=== PATIENT | male | born 1965 | race Caucasian/White ===

== ENCOUNTER 2019-07-13 09:25 | Day surgery (SDC) | payer MEDICAID ==
[2019-07-11 15:00] VITALS: BP 136/88
[2019-07-11 15:10] LABS: BASOPHILS % (AUTO) 0.7 % (0.0-5.0); EOSINOPHILS % (AUTO) 2.8 % (0.0-8.0); MEAN CORPUSCULAR HEMOGLOBIN 29.9 pg (27.0-33.0); MEAN CORPUSCULAR HGB CONC 33.5 g/dL (32.0-36.0); MEAN CORPUSCULAR VOLUME 89.2 fL (79-99); NEUTROPHILS % (AUTO) 67.5 % (40.0-77.0); NUCLEATED RED BLOOD CELLS 0.1 % (0.0-0.19); PLATELET COUNT (AUTO) 233 K/uL (130-400); RED BLOOD CELL COUNT(AUTO) 5.49 MIL/uL (4.50-6.20); RED CELL DISTRIBUTION WIDTH 13.8 % (11.0-15.5); WHITE BLOOD COUNT (AUTO) 6.8 K/uL (4.8-10.8)
[2019-07-11 15:11] LABS: APPEARANCE,URINE Clear (CLEAR); BILIRUBIN,URINE Negative (NEGATIVE); COLOR,URINE Yellow (YELLOW); GLUCOSE, URINE (UA) >=1000 mg/dL (NEGATIVE); KETONES,URINE Negative (NEGATIVE); LEUKOCYTE ESTERASE ,URINE Negative (NEGATIVE); NITRATE,URINE Negative (NEGATIVE); OCCULT BLOOD,URINE Moderate (NEGATIVE); PH,URINE 5.5 (5.0-8.0); PROTEIN,URINE >=1000 mg/dL (NEGATIVE)
[2019-07-11 15:20] LABS: CREATININE 1.8 mg/dL (0.5-1.5); POTASSIUM 4.4 mmol/L (3.5-5.1)
[2019-07-11 15:22] LABS: PARTIAL THROMBOPLASTIN TIME 29.7 SEC (26.3-35.5); PROTHROMBIN TIME 10.5 SEC (9.6-11.6)
[2019-07-11 15:37] LABS: AMORPHOUS SEDIMENT,UR Few /LPF (None Seen); BACTERIA,URINE Few /HPF (None Seen); MUCUS,URINE Few LPF (None Seen)
--- NOTE | 2019-07-12 17:58 | NUR ---
NURSING: CALLED OFFICE: REPORTED ABNORMAL LABS TO [facility], NO NEW ORDERS, OK TO PROCEED PER DR. LEDBETTER.
[~2019-07-13] VITALS: Ht 185.4 cm; Wt 180.5 kg
[2019-07-13] VITALS (18 sets, daily range): BP systolic 135–176; BP diastolic 77–107
[2019-07-13] MEDS: CEFAZOLIN SODIUM 1 GM VIAL IVP ONE ×2 (08:00→10:45)
[~2019-07-13 09:25] MED LIST: ASPI-1181 PO; INSU100C14 SQ; INSU100V12 SQ
[2019-07-13] MEDS ORDERED: ROCURONIUM 10MG/1ML SYR 10 MG/ML ML ONE (10:28)
[2019-07-13] MEDS ORDERED: LIDOCAINE PF 2% 5ML ABBOJECT ONE (10:28)
[2019-07-13] MEDS ORDERED: MIDAZOLAM HCL 1 MG/ML 2ML VIAL ONE (10:28)
[2019-07-13] MEDS ORDERED: FENTANYL CITRATE PF 50 MCG/1 ML 5ML AMP IV ONE (10:28)
[2019-07-13] MEDS ORDERED: PROPOFOL 10 MG/ML 20ML VIAL IV ONE (10:28)
[2019-07-13] MEDS ORDERED: CEFAZOLIN SODIUM 1 GM VIAL ONE (10:32)
[2019-07-13] MEDS ORDERED: SODIUM CHLORIDE 0.9% 1000ML 1,000 ML IV ONE (10:32)
[2019-07-13] MEDS ORDERED: FLUT1DIS4 IH (11:04)
[2019-07-13] MEDS ORDERED: GEMF600T5 PO (11:04)
[2019-07-13] MEDS ORDERED: FOLI0.8T41 PO (11:04)
[2019-07-13] MEDS ORDERED: PREG50 PO (11:04)
[2019-07-13] MEDS ORDERED: protonix PO (11:04)
[2019-07-13] MEDS ORDERED: ALBU8.5H8 IH (11:04)
[2019-07-13] MEDS ORDERED: hydrocodon (11:04)
[2019-07-13] MEDS ORDERED: BACITRACIN 28.4 GM OINT TP ONE (11:29)
[2019-07-13] MEDS ORDERED: DEXAMETHASONE SOD PHOSPHATE 10MG/ML 1ML VIAL ONE (11:33)
[2019-07-13] MEDS ORDERED: GLYCOPYRROLATE 1 MG/5 ML SYRINGE ONE (11:33)
[2019-07-13] MEDS ORDERED: NEOSTIGMINE 5MG/5ML SYR IV ONE (11:33)
[2019-07-13] MEDS ORDERED: IPRATROPIUM/ALBUTEROL SULFATE 3 ML SOLUTION IH ONE (11:57)
--- NOTE | 2019-07-13 13:00 | NUR ---
RECEIVE PT RECEIVED FROM PACU VIA STRETCHER AWAKE ALERT ORIENTED X3. SCROTAL SUPPORT ON, SCROTAL DRESSING DRY AND INTACT, NO OOZING NOTED. PT STATES HIS BACK HURTS, HAS CHRONIC BACK PAIN. PT REPOSITIONED, VERBALIZED RELIEF AFTER REPOSITIONING. PT NOT IN ANY OTHER DISTRESS, NO OTHER COMPLAINTS MADE. PER PT/PACU NURSE, PT VOIDED IN PACU. CALLED FOR TO COME. CALL MESSINA WITHIN REACH. WILL CONTINUE TO MONITOR PT.
--- NOTE | 2019-07-13 13:45 | NUR ---
CLARIFICATION DR. LEDBETTER DID NOT WRITE NEW PRESCRIPTION. PAGED TWICE TO CONFIRM. WAITING FOR CALL BACK.
--- NOTE | 2019-07-13 14:00 | NUR ---
CRITERIA FOR DISCHARGE PT MEETS CRITERIA FOR DISCHARGE BUT IS WAITING FOR TRANSPORTATION. WITH PT AND HAD CALLED MEDICAID TRANSPORT. PT STABLE. STATES HE HAS LITTLE STINGING SENSATION TO INCISION SITE, OTHERWISE HE IS DOING GOOD. NO OTHER COMPLAINTS MADE. NOT ANY APPARENT DISTRESS. SCROTAL SUPPORT ON, SCROTAL DRESSING REMAINS DRY AND INTACT, NO OOZING NOTED. TOLERATED ORAL FLUIDS WELL. DISCHARGE INSTRUCTIONS GIVEN TO AND PT, VERBALIZED UNDERSTANDING.
--- NOTE | 2019-07-13 14:50 | NUR ---
DISCHARGE TRANSPORTATION HERE. PT DISCHARGED VIA WHEELCHAIR WITH . PT STABLE. NO COMPLAINTS MADE.
== END 2019-07-13 14:50 | disposition home or self-care (01) ==
LOC: DAH 09:25
PROVIDERS: ATTEND Urology
DX: N43.2 Other hydrocele (principal); E11.22 Type 2 diabetes mellitus with diabetic chronic kidney disease; N18.9 Chronic kidney disease, unspecified; E78.5 Hyperlipidemia, unspecified; K21.9 Gastro-esophageal reflux disease without esophagitis; F17.210 Nicotine dependence, cigarettes, uncomplicated; J45.909 Unspecified asthma, uncomplicated; E66.01 Morbid (severe) obesity due to excess calories; Z68.42 Body mass index [BMI] 45.0-49.9, adult; Z88.1 Allergy status to other antibiotic agents; Z88.2 Allergy status to sulfonamides; Z79.84 Long term (current) use of oral hypoglycemic drugs; Z90.5 Acquired absence of kidney; Z79.4 Long term (current) use of insulin
CPT/HCPCS: 36415; 55040; 80048; 81001; 82948 ×2; 85025; 85610; 85730; 87088; 93005; 94640; A4215; A4221; A4222; A4223; A4600; A4606; A4663; A4930 ×2; A6260; J0690; J1100; J2001; J2250; J2704; J2710; J3010; J3490; J7030 ×2

== ENCOUNTER 2019-07-28 18:58 | Inpatient (IN) | payer MEDICAID ==
[~2019-07-28] VITALS: Ht 185.4 cm; Wt 209.1 kg
[~2019-07-28 18:58] MED LIST changes: +ALBU8.5H8 IH; +FLUT1DIS4 IH; +FOLI0.8T41 PO; +GEMF600T5 PO; +PREG50 PO; +hydrocodon; +protonix PO
[2019-07-28] MEDS ORDERED: ASPIRIN 325 MG TABLET ONE (19:18)
[2019-07-28 19:41] LABS: BASOPHILS % (AUTO) 1.3 % (0.0-5.0); LYMPHOCYTES % (AUTO) 14.8 % (21.0-51.0); MEAN CORPUSCULAR HEMOGLOBIN 29.7 pg (27.0-33.0); MEAN CORPUSCULAR HGB CONC 33.2 g/dL (32.0-36.0); MEAN CORPUSCULAR VOLUME 89.2 fL (79-99); MONOCYTES % (AUTO) 8.3 % (3.0-13.0); NEUTROPHILS % (AUTO) 73.6 % (40.0-77.0); NUCLEATED RED BLOOD CELLS 0.4 % (0.0-0.19); PLATELET COUNT (AUTO) 273 K/uL (130-400); RED BLOOD CELL COUNT(AUTO) 4.93 MIL/uL (4.50-6.20); WHITE BLOOD COUNT (AUTO) 8.8 K/uL (4.8-10.8)
[2019-07-28 19:52] LABS: CREATININE 1.9 mg/dL (0.5-1.5); POTASSIUM 4.9 mmol/L (3.5-5.1)
[2019-07-28 19:56] LABS: ALBUMIN 2.5 g/dL (3.5-5.0); BILIRUBIN,TOTAL 0.3 mg/dL (0.2-1.0); TOTAL PROTEIN, SERUM 7.3 g/dL (6.0-8.3)
[2019-07-28 20:05] LABS: ABG BASE EXCESS 2.2 mmol/L (-2.0-3.0); ABG HCO3 29.7 mmol/L (21.0-28.0); ABG OXYGEN SATURATION 90.9 % (95.0-99.0); ABG PCO2 58 mmHg (35-48)
[2019-07-28 20:07] LABS: PARTIAL THROMBOPLASTIN TIME 31.1 SEC (26.3-35.5); PROTHROMBIN TIME 10.5 SEC (9.6-11.6)
[2019-07-28] MEDS ORDERED: IPRATROPIUM/ALBUTEROL SULFATE 3 ML SOLUTION IH ONE (20:23)
[2019-07-28 20:34] LABS: B-TYPE NATRIURETIC PEPTIDE 200 pg/mL (0-100)
[2019-07-28] MEDS ORDERED: MORPHINE SULFATE 4 MG/1ML SYG ONE (20:54)
[2019-07-28] MEDS ORDERED: ONDANSETRON HCL 4 MG/2 ML VIAL ONE (20:54)
[2019-07-28] MEDS ORDERED: ZOSYN 3.375GM+NS 50ML 50 ML IV ONE (23:36)
[2019-07-29] VITALS (7 sets, daily range): BP systolic 122–142; BP diastolic 76–91
[2019-07-29] MEDS ORDERED: ONDANSETRON HCL 4 MG/2 ML VIAL IV PRN (01:45)
[2019-07-29] MEDS ORDERED: HYDRALAZINE HCL 20 MG/ML VIAL IV PRN (01:45)
[2019-07-29] MEDS ORDERED: MORPHINE SULFATE 4 MG/1ML SYG IV PRN (01:45)
[2019-07-29] MEDS ORDERED: IPRATROPIUM/ALBUTEROL SULFATE 3 ML SOLUTION IH ONE (02:01)
[2019-07-29] MEDS: METHYLPREDNISOLONE SOD SUCC 125MG/2ML VIAL IV SCH ×3 (04:56→17:00)
[2019-07-29] MEDS: MORPHINE SULFATE 2 MG/ML 1ML SYG IV PRN ×3 (04:57→21:05)
[2019-07-29 05:11] LABS: BASOPHILS % (AUTO) 0.6 % (0.0-5.0); EOSINOPHILS % (AUTO) 2.6 % (0.0-8.0); HEMATOCRIT 44.1 % (42-54); LYMPHOCYTES % (AUTO) 17.7 % (21.0-51.0); MEAN CORPUSCULAR HEMOGLOBIN 29.7 pg (27.0-33.0); MEAN CORPUSCULAR HGB CONC 32.9 g/dL (32.0-36.0); MEAN CORPUSCULAR VOLUME 90.4 fL (79-99); MONOCYTES % (AUTO) 8.4 % (3.0-13.0); NEUTROPHILS % (AUTO) 70.7 % (40.0-77.0); NUCLEATED RED BLOOD CELLS 0.3 % (0.0-0.19); PLATELET COUNT (AUTO) 250 K/uL (130-400); RED BLOOD CELL COUNT(AUTO) 4.88 MIL/uL (4.50-6.20); RED CELL DISTRIBUTION WIDTH 14.5 % (11.0-15.5); WHITE BLOOD COUNT (AUTO) 8.2 K/uL (4.8-10.8)
[2019-07-29 05:32] LABS: ALBUMIN 2.4 g/dL (3.5-5.0); BILIRUBIN,TOTAL 0.4 mg/dL (0.2-1.0); CREATININE 2.1 mg/dL (0.5-1.5); POTASSIUM 4.7 mmol/L (3.5-5.1); TOTAL PROTEIN, SERUM 7.2 g/dL (6.0-8.3)
[2019-07-29] MEDS: IPRATROPIUM/ALBUTEROL SULFATE 3 ML SOLUTION IH SCH ×4 (07:23→23:25)
[2019-07-29] MEDS ORDERED: INSULIN HUMULIN R 100 UNIT/ML 3ML SQ SCH (07:30)
[2019-07-29] MEDS ORDERED: POTASSIUM CHLORIDE 20 MEQ ERTAB PO PRN (09:00)
[2019-07-29] MEDS ORDERED: FUROSEMIDE 10 MG/ML 4ML VIAL IV SCH (09:00)
[2019-07-29] MEDS ORDERED: POTASSIUM CHLORIDE 10% ELIXIR 20 MEQ/15 ML UDCUP PO PRN (09:00)
[2019-07-29] MEDS ORDERED: LIDOCAINE HCL-MPF 1% 2ML VIAL IV PRN (09:00)
[2019-07-29] MEDS ORDERED: POTASSIUM CHLORIDE 20MEQ/100ML 100 ML IV PRN (09:00)
[2019-07-29] MEDS ORDERED: FAMOTIDINE/PF 20 MG/2 ML VIAL IV SCH (09:00)
[2019-07-29] MEDS ORDERED: BUMETANIDE 0.25 MG/ML 10 ML VIAL IV SCH (09:30)
[2019-07-29] MEDS: METOPROLOL TARTRATE 25 MG TAB PO SCH ×2 (10:09→21:04)
[2019-07-29] MEDS: ENOXAPARIN SODIUM 30 MG/0.3 ML SQ SCH (10:09)
[2019-07-29] MEDS: FAMOTIDINE/PF 20 MG/2 ML VIAL IV SCH ×2 (10:09→21:04)
--- NOTE | 2019-07-29 10:25 | NUR ---
INITIATED BUMEX DRIP AT 1MG/HR A ORDERED BY MD. INFORMED PATIENT OF THE INDICATION AND SIDE EFFECTS OF THE MEDICATION. PATIENT VERBALIZED UNDERSTANDING THAT HIS INTAKE AND OUTPUT WILL BE STRICTLY MONITORED. URINAL WITHIN REACH.
[2019-07-29 10:26] LABS: ABG BASE EXCESS -4.5 mmol/L (-2.0-3.0); ABG HCO3 24.5 mmol/L (21.0-28.0); ABG OXYGEN SATURATION 89.5 % (95.0-99.0); ABG PCO2 62 mmHg (35-48)
[2019-07-29] MEDS: BUMETANIDE 0.25 MG/ML 10 ML 40 ML IV SCH (10:29)
[2019-07-29] MEDS: INSULIN LISPRO 100 UNIT/ML 3ML SQ SCH ×5 (11:45→21:25)
--- NOTE | 2019-07-29 19:00 | NUR ---
PATIENT IS ON CONTINUOUS BIPAP AND REMAINED NPO THROUGHOUT THE DAY. HIGH FLOW NASAL CANNULA WAS TRIED IN THE MORNING AT 22L PER MINUTE. ABG RESULTS REPORTED TO Lisa DE SANTIAGO AND SHE ORDERED TO PLACE BIPAP BACK.
--- NOTE | 2019-07-29 19:03 | NUR ---
cm note pt currently in PCU, on bipap machine, attempted to visit with pt, but pt on bipap, and unable to answer, will followup when pt able, or family at bedside.
[2019-07-29] MEDS: CEFTRIAXONE SODIUM 2 GM VIAL IVP SCH (21:03)
[2019-07-29] MEDS: INSULIN GLARGINE 100 UNITS/ML 10 ML VIAL SQ SCH (21:25)
[2019-07-29] MEDS ORDERED: BUMETANIDE 0.25 MG/ML 4 ML VIAL ONE (23:17)
[2019-07-30] MEDS ORDERED: BUMETANIDE 0.25 MG/ML 4 ML VIAL ONE ×2 (01:58→02:02)
[2019-07-30] MEDS: METHYLPREDNISOLONE SOD SUCC 125MG/2ML VIAL IV SCH ×2 (02:06→10:09)
[2019-07-30 03:57] VITALS: BP 142/84
[2019-07-30 04:06] LABS: BASOPHILS % (AUTO) 0.3 % (0.0-5.0); EOSINOPHILS % (AUTO) 0.2 % (0.0-8.0); HEMATOCRIT 45.5 % (42-54); LYMPHOCYTES % (AUTO) 9.2 % (21.0-51.0); MEAN CORPUSCULAR HEMOGLOBIN 29.8 pg (27.0-33.0); MEAN CORPUSCULAR HGB CONC 33.2 g/dL (32.0-36.0); MEAN CORPUSCULAR VOLUME 89.8 fL (79-99); MONOCYTES % (AUTO) 6.3 % (3.0-13.0); NUCLEATED RED BLOOD CELLS 0.1 % (0.0-0.19); PLATELET COUNT (AUTO) 307 K/uL (130-400); RED BLOOD CELL COUNT(AUTO) 5.07 MIL/uL (4.50-6.20); RED CELL DISTRIBUTION WIDTH 14.2 % (11.0-15.5); WHITE BLOOD COUNT (AUTO) 9.4 K/uL (4.8-10.8)
[2019-07-30 04:20] LABS: CREATININE 2.2 mg/dL (0.5-1.5); POTASSIUM 5.6 mmol/L (3.5-5.1)
[2019-07-30] MEDS: INSULIN LISPRO 100 UNIT/ML 3ML SQ SCH ×6 (06:27→21:58)
[2019-07-30] MEDS: IPRATROPIUM/ALBUTEROL SULFATE 3 ML SOLUTION IH SCH ×4 (06:39→23:23)
[2019-07-30 07:00] VITALS: BP 130/78
--- NOTE | 2019-07-30 08:02 | NUR ---
INFORMED SAMANTHA BOWENS ABOUT THE NEW CONSULT.
[2019-07-30 08:47] LABS: ABG BASE EXCESS 4.1 mmol/L (-2.0-3.0); ABG HCO3 32.6 mmol/L (21.0-28.0); ABG OXYGEN SATURATION 91.3 % (95.0-99.0); ABG PCO2 66 mmHg (35-48)
[2019-07-30] MEDS: BUMETANIDE 0.25 MG/ML 10 ML 40 ML IV SCH ×2 (09:29→19:36)
[2019-07-30] MEDS: FAMOTIDINE/PF 20 MG/2 ML VIAL IV SCH ×2 (10:09→21:30)
[2019-07-30] MEDS: ENOXAPARIN SODIUM 30 MG/0.3 ML SQ SCH (10:09)
[2019-07-30] MEDS: METOPROLOL TARTRATE 25 MG TAB PO SCH ×2 (10:09→21:29)
[2019-07-30] MEDS: MORPHINE SULFATE 2 MG/ML 1ML SYG IV PRN ×2 (10:38→21:53)
[2019-07-30 11:00] VITALS: BP 126/63
--- NOTE | 2019-07-30 11:28 | NUR ---
DC PLAN PATIENT STILL HAVING SOB ON CONTINUOUS BIPAP NOT ABLE TO ANSWER QUESTIONS. NO FAMILY AT BEDSIDE MANUEL WILL CONTINUE TO FOLLOW. Addendum: 07/30/19 at 1128 by ANDREIA ORR RN CM Amended: Links added.
[2019-07-30] MEDS ORDERED: SODIUM CHLORIDE 3% FOR INHALATION 4 ML/AMP VIAL.NEB IH ONE (14:05)
[2019-07-30 15:00] VITALS: BP 144/80
[2019-07-30] MEDS ORDERED: ENOXAPARIN SODIUM 30 MG/0.3 ML SQ SCH (16:30)
[2019-07-30] MEDS ORDERED: INSULIN LISPRO 100 UNIT/ML 3ML SQ SCH (17:00)
[2019-07-30 20:18] VITALS: BP 136/74
[2019-07-30] MEDS ORDERED: METHYLPREDNISOLONE SOD SUCC 125MG/2ML VIAL IV SCH (21:00)
[2019-07-30] MEDS: CEFTRIAXONE SODIUM 2 GM VIAL IVP SCH (21:31)
[2019-07-30] MEDS: ENOXAPARIN SODIUM 100 MG/1 ML SQ SCH (21:35)
[2019-07-30] MEDS: INSULIN GLARGINE 100 UNITS/ML 10 ML VIAL SQ SCH (21:58)
[2019-07-30 23:54] VITALS: BP 154/93
[2019-07-31 03:34] LABS: BASOPHILS % (AUTO) 0.4 % (0.0-5.0); EOSINOPHILS % (AUTO) 0.1 % (0.0-8.0); HEMATOCRIT 48.1 % (42-54); LYMPHOCYTES % (AUTO) 5.6 % (21.0-51.0); MEAN CORPUSCULAR HEMOGLOBIN 29.1 pg (27.0-33.0); MEAN CORPUSCULAR HGB CONC 32.3 g/dL (32.0-36.0); MEAN CORPUSCULAR VOLUME 90.3 fL (79-99); NEUTROPHILS % (AUTO) 87.9 % (40.0-77.0); NUCLEATED RED BLOOD CELLS 0.1 % (0.0-0.19); PLATELET COUNT (AUTO) 309 K/uL (130-400); RED BLOOD CELL COUNT(AUTO) 5.33 MIL/uL (4.50-6.20); RED CELL DISTRIBUTION WIDTH 14.1 % (11.0-15.5); WHITE BLOOD COUNT (AUTO) 10.4 K/uL (4.8-10.8)
[2019-07-31 03:51] LABS: HEMOGLOBIN A1C 10.2 % (4.0-6.0)
[2019-07-31 04:12] LABS: CREATININE 2.3 mg/dL (0.5-1.5)
[2019-07-31 04:21] VITALS: BP 142/87
--- NOTE | 2019-07-31 04:40 | NUR ---
BLOOD SUGAR REPORTED BLOOD SUGAR OF 475 THIS MORNING, TO JONNATHAN HAWKINS FROM HOSPITALIST, STATED TO GIVE 16 U LISPRO AND RECHECK IN 1 HR, WILL CONTINUE TO MONITOR PATIENT
[2019-07-31] MEDS: INSULIN LISPRO 100 UNIT/ML 3ML SQ SCH ×8 (04:50→20:52)
[2019-07-31] MEDS: BUMETANIDE 0.25 MG/ML 10 ML 40 ML IV SCH (06:10)
[2019-07-31] MEDS: IPRATROPIUM/ALBUTEROL SULFATE 3 ML SOLUTION IH SCH ×4 (06:50→23:41)
--- NOTE | 2019-07-31 07:30 | NUR ---
ENCOUNTERED PATIENT RESTING ON BED WITH NO C/O SOB. BIPAP IS ON. HE VOICED THAT HE FEELS BETTER TODAY. CALL LIGHT WITHIN REACH. INSTRUCTED TO CALL FOR ASSISTANCE.
[2019-07-31] MEDS: METOPROLOL TARTRATE 25 MG TAB PO SCH ×2 (07:46→20:27)
[2019-07-31] MEDS: FAMOTIDINE/PF 20 MG/2 ML VIAL IV SCH ×2 (07:46→20:27)
[2019-07-31] MEDS: ENOXAPARIN SODIUM 100 MG/1 ML SQ SCH ×2 (07:47→20:26)
[2019-07-31 07:57] VITALS: BP 149/90
[2019-07-31 10:33] LABS: ABG BASE EXCESS 10.7 mmol/L (-2.0-3.0); ABG OXYGEN SATURATION 94.1 % (95.0-99.0); ABG PCO2 68 mmHg (35-48)
[2019-07-31 12:03] VITALS: BP 126/78
--- NOTE | 2019-07-31 12:47 | NUR ---
MORRO PLAN PATIENT STILL SOB DIETARY IN ROOM. CM WILL CONTINUE TO FOLLOW. NEW CONSULT NEPHROLOGY ACUTE ON CHRONIC RENAL FAILURE. Addendum: 07/31/19 at 1248 by ANDREIA ORR RN CM Amended: Links added.
[2019-07-31 15:33] VITALS: BP 133/79
--- NOTE | 2019-07-31 15:50 | NUR ---
RD Notification Pt admitted for SOBm Chest Pain. Pt with morbid obesity (BMI 59.7). RD provided motivational interviewing to follow up with additional Weight Loss Lifestyle Modification Recommendations. Patient states difficulty with wt loss d/t previous foot surgery limiting exercise and poor economic resources, and deals daily with stress and anxiety. RD to follow up with additional diet education. Recommend PT evaluation for lifestyle recommendations. Pt LBM 07/28/19; Recommend stool softener/laxative as medically feasible. Pt monitored labs: Na 134, Cl 93, CO2 36, BUN 55, Cr 2.3, GFR 32, Glu 391, A1C 10.2, Alb 2.4. RD to continue to monitor. Please notify as nutritional concerns arise. Thank you. Addendum: 07/31/19 at [address] Amended: Links added.
--- NOTE | 2019-07-31 18:40 | NUR ---
SBAR REPORT HANDED TO TREVIN COBB. PATIENT TOLERATED BIPAP USE INTERMITTENTLY WITH HIGH FLOW NASAL CANNULA AT 20L 70% FIO2 WITH MEALS. BLOOD SUGAR HAD BEEN COVERED WITH SCHEDULED AND SLIDING SCALE HUMALOG.
[2019-07-31 19:31] VITALS: BP 113/72
[2019-07-31] MEDS: INSULIN GLARGINE 100 UNITS/ML 10 ML VIAL SQ SCH (20:25)
[2019-07-31] MEDS: CEFTRIAXONE SODIUM 2 GM VIAL IVP SCH (20:26)
[2019-07-31 23:23] VITALS: BP 112/71
[2019-08-01] MEDS: MORPHINE SULFATE 2 MG/ML 1ML SYG IV PRN ×3 (03:39→21:04)
[2019-08-01 03:44] VITALS: BP 125/70
[2019-08-01 05:01] LABS: HEMATOCRIT 49.1 % (42-54); MEAN CORPUSCULAR HEMOGLOBIN 29.1 pg (27.0-33.0); MEAN CORPUSCULAR HGB CONC 32.8 g/dL (32.0-36.0); MEAN CORPUSCULAR VOLUME 88.9 fL (79-99); NUCLEATED RED BLOOD CELLS 0.1 % (0.0-0.19); PLATELET COUNT (AUTO) 307 K/uL (130-400); RED BLOOD CELL COUNT(AUTO) 5.52 MIL/uL (4.50-6.20); WHITE BLOOD COUNT (AUTO) 7.4 K/uL (4.8-10.8)
[2019-08-01 05:18] LABS: CREATININE 2.6 mg/dL (0.5-1.5); MAGNESIUM 1.9 mg/dL (1.80-2.40); PHOSPHORUS 6.1 mg/dL (2.5-4.9); POTASSIUM 4.1 mmol/L (3.5-5.1); THYROID STIMULATING HORMONE 4.3 uIU/mL (0.36-3.74); URIC ACID 14.7 mg/dL (2.6-7.2)
[2019-08-01 05:19] LABS: BAND NEUTROPHILS % (MANUAL) 4 % (0-2); LYMPHOCYTES % (MANUAL) 20 % (22-44); MAN.DIFF COMMENT-IMPRESSION MANUAL DIFFERENTIAL; MONOCYTES % (MANUAL) 4 % (2-9); SEGMENTED NEUTROPHILS % 72 % (40-70)
[2019-08-01 05:20] LABS: PLATELET MORPHOLOGY COMMENT ADEQUATE
[2019-08-01] MEDS: INSULIN LISPRO 100 UNIT/ML 3ML SQ SCH ×7 (06:36→20:41)
[2019-08-01] MEDS: IPRATROPIUM/ALBUTEROL SULFATE 3 ML SOLUTION IH SCH ×4 (07:00→23:05)
[2019-08-01 07:34] VITALS: BP 110/64
[2019-08-01] MEDS: FAMOTIDINE/PF 20 MG/2 ML VIAL IV SCH ×2 (09:42→21:03)
[2019-08-01] MEDS: METOPROLOL TARTRATE 25 MG TAB PO SCH ×2 (09:42→21:03)
[2019-08-01] MEDS: FOLIC ACID/VITAMIN B COMP W-C 1 MG CAP/TAB PO SCH (09:42)
[2019-08-01] MEDS: ENOXAPARIN SODIUM 100 MG/1 ML SQ SCH ×2 (09:43→21:03)
[2019-08-01 11:33] VITALS: BP 107/69
--- NOTE | 2019-08-01 14:49 | NUR ---
DIET EDUCATION CASSY discussed Wt loss and management with Pt for Morbid Obesity. CASSY discussed Weight loss tips with emphasis on diet and exercise. CASSY also discussed Mediterranean diet with Pt. CASSY reviewed reference materials and handouts with Pt. Pt with questions. RD answered questions. Pt verbalized understanding. Pt also mentions being seen by Physical Therapist. CASSY encouraged Pt to notify as questions or concerns arise. Addendum: 08/01/19 at [address] Amended: Links added.
[2019-08-01 15:25] VITALS: BP 131/79
[2019-08-01] MEDS: CALCIUM ACETATE 667 MG CAPSULE PO SCH (16:46)
--- NOTE | 2019-08-01 17:52 | NUR ---
DC PLANNING PER PATIENT, STATES HE IS INDEPENDENT, BUT HAS TRANSPORTATION SERVICES WHEN NEEDED. DAUGHTER SERVES AUTO BODY CUSTOMIZER WELL DURING THE DAY. HAS WALKER, CRUTCHES AND WHEELCHAIR WELL CPAP AND NEBULIZER. FEELS SAVE TO RETURN HOME. Addendum: 08/01/19 at 1758 by REZA ALEXANDER Amended: Links added.
[2019-08-01 18:21] LABS: ABG BASE EXCESS 9.2 mmol/L (-2.0-3.0); ABG HCO3 37.2 mmol/L (21.0-28.0); ABG OXYGEN SATURATION 91.9 % (95.0-99.0); ABG PCO2 65 mmHg (35-48)
--- NOTE | 2019-08-01 18:25 | NUR ---
abgs drawn co2 65 and informed memo hurtado, asked pt if he wanted to go on bipap but replied he would rather go on later tonight.pt states he has no sob and is awake and oriented.pt on [place] NC 45% 15L
[2019-08-01 19:56] VITALS: BP 113/70
[2019-08-01] MEDS: CEFTRIAXONE SODIUM 2 GM VIAL IVP SCH (21:02)
[2019-08-01] MEDS: INSULIN GLARGINE 100 UNITS/ML 10 ML VIAL SQ SCH (21:06)
[2019-08-01 23:37] VITALS: BP 129/73
[2019-08-02 03:33] VITALS: BP 121/80
[2019-08-02 04:33] LABS: HEMATOCRIT 48.2 % (42-54); MEAN CORPUSCULAR HEMOGLOBIN 29.2 pg (27.0-33.0); MEAN CORPUSCULAR HGB CONC 33.2 g/dL (32.0-36.0); MEAN CORPUSCULAR VOLUME 87.9 fL (79-99); NUCLEATED RED BLOOD CELLS 0.1 % (0.0-0.19); PLATELET COUNT (AUTO) 302 K/uL (130-400); RED BLOOD CELL COUNT(AUTO) 5.48 MIL/uL (4.50-6.20); RED CELL DISTRIBUTION WIDTH 13.8 % (11.0-15.5); WHITE BLOOD COUNT (AUTO) 6.9 K/uL (4.8-10.8)
[2019-08-02 04:41] LABS: CREATININE 2.4 mg/dL (0.5-1.5); POTASSIUM 3.8 mmol/L (3.5-5.1)
[2019-08-02] MEDS: INSULIN LISPRO 100 UNIT/ML 3ML SQ SCH ×7 (05:37→21:40)
[2019-08-02] MEDS: IPRATROPIUM/ALBUTEROL SULFATE 3 ML SOLUTION IH SCH ×4 (06:33→23:30)
--- NOTE | 2019-08-02 07:50 | NUR ---
ASSESSMENT ENCOUNTERED PT ASLEEP WITH BIPAP BUT AROUSEABLE, A&OX3, CALM COOPERATIVE AND DOES NOT APPEAR TO BE IN ANY DISTRESS NOR ANY NEURO DEFICITS PRESENT. PT C/O CHRONIC LOWER EXTREMITY PAIN BUT DENIES NAUSEA OR LIGHTHEADEDNESS. PT IS ABLE TO TOLERATE FOODS, FLUIDS AND MEDICATION WITHOUT THROAT CLEARING OR COUGH. CALL LIGHT WITHIN REACH.
[2019-08-02] MEDS: CALCIUM ACETATE 667 MG CAPSULE PO SCH ×3 (08:02→17:06)
[2019-08-02 08:08] VITALS: BP 125/75
[2019-08-02] MEDS ORDERED: TRAMADOL HCL 50 MG TABLET PO PRN (11:15)
[2019-08-02] MEDS: FAMOTIDINE/PF 20 MG/2 ML VIAL IV SCH ×2 (11:23→20:39)
[2019-08-02] MEDS: METOPROLOL TARTRATE 25 MG TAB PO SCH ×2 (11:23→20:40)
[2019-08-02] MEDS: FOLIC ACID/VITAMIN B COMP W-C 1 MG CAP/TAB PO SCH (11:23)
[2019-08-02] MEDS: ENOXAPARIN SODIUM 100 MG/1 ML SQ SCH (11:24)
--- NOTE | 2019-08-02 11:30 | NUR ---
AMBULATION FROM RECLINER AND BACK TO BED, GAIT SLOW WITH CRUTCHES AND ASSIST, PT O2SATS DOWN TO 84% ON 4LNC AND RETURNED UP TO 94% ONCE IN SEMI BOWSER'S POSITION. CALL LIGHT WITHIN REACH.
[2019-08-02 11:53] VITALS: BP 133/77
--- NOTE | 2019-08-02 15:45 | NUR ---
DC PLAN VISITED WITH PATIENT. ASKED ABOUT CPAP MACHINE WHICH COMPANY HE GOT IT THROUGH SAID IT WAS THROUGH DR. HERRERA. CALLED DR. HERRERA OFFICE SAID THE ONE HE GOT THROUGH HIS OFFICE WAS IN 2013. NEEDS NEW EVAL FOR NEW MACHINE . SPOKE TO [facility] PATIENT SAID THAT THEY DO TAKE MEDICAID SUPERIOR. INFO AVAILABLE SENT TO [facility]. Addendum: 08/02/19 at 1550 by ANDREIA ORR RN CM Amended: Links added.
--- NOTE | 2019-08-02 15:50 | NUR ---
DC PLAN GAVE OPTION OF GOING TO [facility] FOR THERAPY FOR PT AND RESPIRATORY. DECLINED. SAID WANTS TO GO HOME. Addendum: 08/02/19 at 1552 by ANDREIA ORR RN CM Amended: Links added.
[2019-08-02 16:05] VITALS: BP 109/73
[2019-08-02 19:33] VITALS: BP 121/70
[2019-08-02] MEDS: INSULIN GLARGINE 100 UNITS/ML 10 ML VIAL SQ SCH (20:34)
[2019-08-02] MEDS: CEFTRIAXONE SODIUM 2 GM VIAL IVP SCH (20:39)
[2019-08-02] MEDS: APIXABAN 5 MG TABLET PO SCH (20:39)
[2019-08-02 21:36] LABS: ABG BASE EXCESS 8.3 mmol/L (-2.0-3.0); ABG HCO3 34.2 mmol/L (21.0-28.0); ABG OXYGEN SATURATION 93.7 % (95.0-99.0); ABG PCO2 52 mmHg (35-48)
[2019-08-02 23:36] VITALS: BP 114/65
[2019-08-03 03:36] LABS: HEMATOCRIT 48.3 % (42-54); MEAN CORPUSCULAR HEMOGLOBIN 29.5 pg (27.0-33.0); MEAN CORPUSCULAR HGB CONC 33.7 g/dL (32.0-36.0); MEAN CORPUSCULAR VOLUME 87.3 fL (79-99); PLATELET COUNT (AUTO) 293 K/uL (130-400); RED BLOOD CELL COUNT(AUTO) 5.53 MIL/uL (4.50-6.20); RED CELL DISTRIBUTION WIDTH 14.1 % (11.0-15.5); WHITE BLOOD COUNT (AUTO) 6.8 K/uL (4.8-10.8)
[2019-08-03 03:39] LABS: CREATININE 2.2 mg/dL (0.5-1.5); POTASSIUM 4.4 mmol/L (3.5-5.1)
[2019-08-03 04:00] VITALS: BP 133/77
[2019-08-03 04:01] LABS: BAND NEUTROPHILS % (MANUAL) 2 % (0-2); LYMPHOCYTES % (MANUAL) 18 % (22-44); MAN.DIFF COMMENT-IMPRESSION MANUAL DIFFERENTIAL; MONOCYTES % (MANUAL) 14 % (2-9); PLATELET MORPHOLOGY COMMENT ADEQUATE; SEGMENTED NEUTROPHILS % 66 % (40-70)
[2019-08-03] MEDS: IPRATROPIUM/ALBUTEROL SULFATE 3 ML SOLUTION IH SCH ×4 (05:05→23:57)
[2019-08-03] MEDS: INSULIN LISPRO 100 UNIT/ML 3ML SQ SCH ×6 (06:18→22:24)
[2019-08-03 07:55] VITALS: BP 135/75
--- NOTE | 2019-08-03 08:00 | NUR ---
ASSESSMENT ENCOUNTERED PT ASLEEP WITH BIPAP BUT AROUSEABLE, A&OX3, CALM COOPERATIVE AND DOES NOT APPEAR TO BE IN ANY DISTRESS NOR ANY NEURO DEFICITS PRESENT. PT C/O CHRONIC LOWER EXTREMITY PAIN BUT DENIES NAUSEA OR LIGHTHEADEDNESS. PT IS OFF BIPAP FOR MEALS AND ABLE TO TOLERATE FOODS, FLUIDS AND MEDICATION WITHOUT THROAT CLEARING OR COUGH. CALL LIGHT WITHIN REACH.
[2019-08-03] MEDS: FOLIC ACID/VITAMIN B COMP W-C 1 MG CAP/TAB PO SCH (08:21)
[2019-08-03] MEDS: APIXABAN 5 MG TABLET PO SCH ×2 (08:21→22:21)
[2019-08-03] MEDS: FAMOTIDINE/PF 20 MG/2 ML VIAL IV SCH ×2 (08:22→22:20)
[2019-08-03] MEDS: CALCIUM ACETATE 667 MG CAPSULE PO SCH ×3 (08:22→17:33)
[2019-08-03] MEDS: METOPROLOL TARTRATE 25 MG TAB PO SCH ×2 (08:22→22:21)
[2019-08-03] MEDS ORDERED: VANCOMYCIN PROTOCOL PER PHARMACY IV SCH (11:15)
[2019-08-03 12:21] VITALS: BP 112/72
[2019-08-03] MEDS ORDERED: VANCOMYCIN 2 GM in SODIUM CHLORIDE 0.9% 500ML 500 ML IV SCH (12:30)
[2019-08-03 15:30] VITALS: BP 130/73
--- NOTE | 2019-08-03 16:26 | NUR ---
DC PLAN SPOKE TO [facility] PATIENT. PATIENT APPROVED FOR OXYGEN SENT INFO TO LOCAL OFFICE. PENDING DISCHARGE FOR DELIVERY. PATIENT HAS A NEW CONSULT FOR DR. Crawford PENDING REC'S. Addendum: 08/03/19 at 1627 by ANDREIA ORR RN CM Amended: Links added.
[2019-08-03 19:33] VITALS: BP 123/73
[2019-08-03] MEDS: CEFTRIAXONE SODIUM 2 GM VIAL IVP SCH (22:20)
[2019-08-03] MEDS: LINEZOLID 600 MG/ISO-OSM 300 ML IV SCH (22:20)
[2019-08-03] MEDS: INSULIN GLARGINE 100 UNITS/ML 10 ML VIAL SQ SCH (22:25)
[2019-08-03 23:29] VITALS: BP 135/75
[2019-08-04 03:56] VITALS: BP 131/81
[2019-08-04] MEDS: IPRATROPIUM/ALBUTEROL SULFATE 3 ML SOLUTION IH SCH ×4 (06:11→23:18)
[2019-08-04] MEDS: INSULIN LISPRO 100 UNIT/ML 3ML SQ SCH ×7 (06:31→21:20)
[2019-08-04] MEDS: CALCIUM ACETATE 667 MG CAPSULE PO SCH ×3 (08:04→17:03)
[2019-08-04 08:21] VITALS: BP 139/80
[2019-08-04] MEDS: APIXABAN 5 MG TABLET PO SCH ×2 (10:02→21:06)
[2019-08-04] MEDS: FOLIC ACID/VITAMIN B COMP W-C 1 MG CAP/TAB PO SCH (10:02)
[2019-08-04] MEDS: LINEZOLID 600 MG/ISO-OSM 300 ML IV SCH ×2 (10:02→21:05)
[2019-08-04] MEDS: FAMOTIDINE/PF 20 MG/2 ML VIAL IV SCH ×2 (10:02→21:04)
[2019-08-04] MEDS: METOPROLOL TARTRATE 25 MG TAB PO SCH ×2 (10:03→21:06)
[2019-08-04 11:59] VITALS: BP 136/78
[2019-08-04] MEDS ORDERED: VANCOMYCIN 1.25 GM in SODIUM CHLORIDE 0.9% 250 ML IV SCH (12:00)
[2019-08-04 16:19] VITALS: BP 115/65
[2019-08-04 19:27] LABS: ABG BASE EXCESS 9.7 mmol/L (-2.0-3.0); ABG HCO3 37.7 mmol/L (21.0-28.0); ABG OXYGEN SATURATION 91.6 % (95.0-99.0); ABG PCO2 65 mmHg (35-48)
[2019-08-04 19:37] VITALS: BP 153/79
[2019-08-04] MEDS: INSULIN GLARGINE 100 UNITS/ML 10 ML VIAL SQ SCH (21:21)
[2019-08-04 23:45] VITALS: BP 127/72
[2019-08-05 04:52] VITALS: BP 120/73
[2019-08-05 05:39] LABS: HEMATOCRIT 46.7 % (42-54); MEAN CORPUSCULAR HEMOGLOBIN 28.6 pg (27.0-33.0); MEAN CORPUSCULAR HGB CONC 32.7 g/dL (32.0-36.0); MEAN CORPUSCULAR VOLUME 87.6 fL (79-99); NUCLEATED RED BLOOD CELLS 0.1 % (0.0-0.19); PLATELET COUNT (AUTO) 258 K/uL (130-400); RED BLOOD CELL COUNT(AUTO) 5.33 MIL/uL (4.50-6.20); RED CELL DISTRIBUTION WIDTH 13.6 % (11.0-15.5); WHITE BLOOD COUNT (AUTO) 6.6 K/uL (4.8-10.8)
[2019-08-05 05:50] LABS: MAGNESIUM 2.2 mg/dL (1.80-2.40); PHOSPHORUS 3.6 mg/dL (2.5-4.9); POTASSIUM 4.5 mmol/L (3.5-5.1)
[2019-08-05] MEDS: IPRATROPIUM/ALBUTEROL SULFATE 3 ML SOLUTION IH SCH ×4 (06:14→23:23)
[2019-08-05] MEDS: INSULIN LISPRO 100 UNIT/ML 3ML SQ SCH ×7 (06:39→22:14)
--- NOTE | 2019-08-05 06:40 | NUR ---
Re: scheduled SS scale insulin coverage AM sliding scale coverage of 10 units not given as pt has a scheduled 22 units at this time for blood sugar 91. Addendum: 08/05/19 at 0646 by SHAE GOMEZ RN RN Correction blood sugar 262.
[2019-08-05 07:47] VITALS: BP 132/74
[2019-08-05] MEDS: CALCIUM ACETATE 667 MG CAPSULE PO SCH ×3 (08:20→17:28)
[2019-08-05] MEDS: APIXABAN 5 MG TABLET PO SCH ×2 (09:46→21:54)
[2019-08-05] MEDS: LINEZOLID 600 MG/ISO-OSM 300 ML IV SCH ×2 (09:46→21:54)
[2019-08-05] MEDS: FAMOTIDINE/PF 20 MG/2 ML VIAL IV SCH ×2 (09:46→21:53)
[2019-08-05] MEDS: FOLIC ACID/VITAMIN B COMP W-C 1 MG CAP/TAB PO SCH (09:46)
[2019-08-05] MEDS: METOPROLOL TARTRATE 25 MG TAB PO SCH ×2 (09:46→21:49)
[2019-08-05 12:13] VITALS: BP 125/77
[2019-08-05 15:35] VITALS: BP 130/70
[2019-08-05 19:44] VITALS: BP 165/92
[2019-08-05] MEDS: INSULIN GLARGINE 100 UNITS/ML 10 ML VIAL SQ SCH (22:13)
[2019-08-06] VITALS (7 sets, daily range): BP systolic 103–141; BP diastolic 62–81
[2019-08-06] MEDS: INSULIN LISPRO 100 UNIT/ML 3ML SQ SCH ×7 (06:27→21:30)
[2019-08-06] MEDS: IPRATROPIUM/ALBUTEROL SULFATE 3 ML SOLUTION IH SCH ×4 (06:55→23:31)
[2019-08-06] MEDS: CALCIUM ACETATE 667 MG CAPSULE PO SCH ×3 (07:52→17:19)
[2019-08-06] MEDS: FAMOTIDINE/PF 20 MG/2 ML VIAL IV SCH ×2 (09:44→21:30)
[2019-08-06] MEDS: APIXABAN 5 MG TABLET PO SCH ×2 (09:45→21:31)
[2019-08-06] MEDS: LINEZOLID 600 MG/ISO-OSM 300 ML IV SCH ×2 (09:45→21:31)
[2019-08-06] MEDS: FOLIC ACID/VITAMIN B COMP W-C 1 MG CAP/TAB PO SCH (09:45)
[2019-08-06] MEDS: METOPROLOL TARTRATE 25 MG TAB PO SCH ×2 (09:45→21:31)
[2019-08-06] MEDS: INSULIN GLARGINE 100 UNITS/ML 10 ML VIAL SQ SCH (21:29)
[2019-08-07 04:02] LABS: ABG BASE EXCESS 5.4 mmol/L (-2.0-3.0); ABG HCO3 32.4 mmol/L (21.0-28.0); ABG OXYGEN SATURATION 97.8 % (95.0-99.0); ABG PCO2 57 mmHg (35-48)
[2019-08-07 04:32] VITALS: BP 128/72
[2019-08-07] MEDS: INSULIN LISPRO 100 UNIT/ML 3ML SQ SCH ×5 (05:44→16:53)
[2019-08-07] MEDS: IPRATROPIUM/ALBUTEROL SULFATE 3 ML SOLUTION IH SCH ×3 (07:44→18:49)
[2019-08-07 07:58] VITALS: BP 127/74
[2019-08-07] MEDS ORDERED: FLUCONAZOLE 200 MG/NS 100 ML 100 ML IV SCH (09:00)
[2019-08-07] MEDS ORDERED: LEVOFLOXACIN 750 MG/D5W 150 ML 150 ML IV SCH (09:00)
[2019-08-07] MEDS ORDERED: FAMOTIDINE 20MG TAB 20 MG TAB PO SCH (09:00)
[2019-08-07] MEDS: APIXABAN 5 MG TABLET PO SCH (10:06)
[2019-08-07] MEDS: METOPROLOL TARTRATE 25 MG TAB PO SCH (10:06)
[2019-08-07] MEDS: FOLIC ACID/VITAMIN B COMP W-C 1 MG CAP/TAB PO SCH (10:06)
[2019-08-07] MEDS: CALCIUM ACETATE 667 MG CAPSULE PO SCH ×3 (10:06→16:52)
[2019-08-07] MEDS: LINEZOLID 600 MG/ISO-OSM 300 ML IV SCH (10:06)
[2019-08-07] MEDS ORDERED: LIDOCAINE 5% TOPICAL PATCH TP SCH (10:45)
[2019-08-07 12:15] VITALS: BP 136/72
[2019-08-07] MEDS ORDERED: LEVOFLOXACIN 500 MG TABLET PO SCH (14:45)
--- NOTE | 2019-08-07 15:38 | NUR ---
DC PLAN SPOKE TO DR. UNDERWOOD SAID CHANGED TO PO AND PATIENT CAN DC ON PO MEDICATION. ONLY THING WE WERE PENDING TO RE SEND EVAL. SPOKE TO REP AT [facility] PATIENT. SAID ALL THEY NEEDED WAS NEW TESTING AND ONE STEP FORM. GOT FORMS SIGNED BY . INFO FAXED TO ALL THREE NUMBERS. Addendum: 08/07/19 at 1541 by ANDREIA ORR RN CM Amended: Links added.
--- NOTE | 2019-08-07 16:06 | NUR ---
OXYGEN SET UP CONFIRMED OXYGEN FOR HOME USE WITH [facility] PATIENT WITH [facility], RECEIVED SAID PAPERWORK. MAYURI TO CALL FOR SECOND PART OF DELIVERY. O2 TANK IN ROOM.NURSE, SHO RN, MADE AWARE. PENDING DC HOME
[2019-08-07 16:08] VITALS: BP 135/76
--- NOTE | 2019-08-07 16:47 | NUR ---
DC PLAN GAVE PATIENT LOW INCOME MED PACKET. ZYVOX COUPON FROM [facility] AND FROM [email or web address]. Addendum: 08/07/19 at 1648 by ANDREIA ORR RN CM Amended: Links added.
[2019-08-07] MEDS ORDERED: METO25 PO (17:03)
[2019-08-07] MEDS ORDERED: LEVO500T2 PO (17:03)
[2019-08-07] MEDS ORDERED: IPRA3AMP24 IH (17:03)
[2019-08-07] MEDS ORDERED: Folic Acid/Vitamin B Comp W-C PO (17:03)
[2019-08-07] MEDS ORDERED: Calcium Acetate PO (17:03)
[2019-08-07] MEDS ORDERED: LINE600T14 PO (17:03)
--- NOTE | 2019-08-07 18:30 | NUR ---
DISCHARGE VERBAL& WRITTEN DISCHARGE INSTRUCTIONS REVIEWED & GIVEN TO PT. QUESTIONS ENCOURAGED & CLARIFIED. PROPER CARE & MGT OF PNEUMONIA REVIEWED. QUESTIONS ENCOURAGED & CLARIFIED. NEW PRESCRIBED MEDICATIONS REVIEWED. PRESCRIPTIONS X 2 GIVEN TO PT; SIGNED COPIES PLACED IN CHART. ANTIBIOTIC VOUCHERS GIVEN TO PT BY CM EARLIER. DISCONTINUED MEDICATIONS REVIEWED. HOME O2 SET-UP EARLIER BY CM. F/U APPT INFO REVIEWED. TELE CHERI REMOVED EARLIER. IV DISCONTINUED. PT & GATHER PERSONAL BELONGINGS. WILL NOTIFY STAFF WHEN FAMILY ARRIVES TO TAKE PT HOME.
[2019-08-08] MEDS ORDERED: LIDOCAINE 5% TOPICAL PATCH TP SCH (09:00)
== END 2019-08-07 19:45 | disposition home or self-care (01) | DRG 720 ==
LOC: EDH 18:58 → EDHIP 18:59 → 2AH 07-29 02:08
PROVIDERS: ADMIT Internal Medicine; ATTEND Internal Medicine
PROC: 5A09357 Assistance with Respiratory Ventilation, Less than 24 Consecutive Hours, Continuous Positive Airway Pressure (ICD-10-PCS; principal; 2019-07-29)
PROC: 5A09357 Assistance with Respiratory Ventilation, Less than 24 Consecutive Hours, Continuous Positive Airway Pressure (ICD-10-PCS; 2019-07-30)
PROC: 5A09357 Assistance with Respiratory Ventilation, Less than 24 Consecutive Hours, Continuous Positive Airway Pressure (ICD-10-PCS; 2019-07-31)
PROC: 5A09357 Assistance with Respiratory Ventilation, Less than 24 Consecutive Hours, Continuous Positive Airway Pressure (ICD-10-PCS; 2019-08-01)
PROC: 5A09357 Assistance with Respiratory Ventilation, Less than 24 Consecutive Hours, Continuous Positive Airway Pressure (ICD-10-PCS; 2019-08-03)
PROC: 5A09357 Assistance with Respiratory Ventilation, Less than 24 Consecutive Hours, Continuous Positive Airway Pressure (ICD-10-PCS; 2019-08-04)
PROC: 5A09357 Assistance with Respiratory Ventilation, Less than 24 Consecutive Hours, Continuous Positive Airway Pressure (ICD-10-PCS; 2019-08-06)
PROC: 5A09357 Assistance with Respiratory Ventilation, Less than 24 Consecutive Hours, Continuous Positive Airway Pressure (ICD-10-PCS; 2019-08-07)
DX: A41.02 Sepsis due to Methicillin resistant Staphylococcus aureus (principal); J96.21 Acute and chronic respiratory failure with hypoxia; I50.41 Acute combined systolic (congestive) and diastolic (congestive) heart failure; J15.212 Pneumonia due to Methicillin resistant Staphylococcus aureus; E87.2 Acidosis; I42.9 Cardiomyopathy, unspecified; N17.9 Acute kidney failure, unspecified; I13.0 Hypertensive heart and chronic kidney disease with heart failure and stage 1 through stage 4 chronic kidney disease, or unspecified chronic kidney disease; E87.1 Hypo-osmolality and hyponatremia; Z68.44 Body mass index [BMI] 60.0-69.9, adult; J44.1 Chronic obstructive pulmonary disease with (acute) exacerbation; E11.22 Type 2 diabetes mellitus with diabetic chronic kidney disease; D64.9 Anemia, unspecified; E11.9 Type 2 diabetes mellitus without complications; G47.33 Obstructive sleep apnea (adult) (pediatric); E66.01 Morbid (severe) obesity due to excess calories; J96.22 Acute and chronic respiratory failure with hypercapnia; J98.4 Other disorders of lung; E11.65 Type 2 diabetes mellitus with hyperglycemia; F17.200 Nicotine dependence, unspecified, uncomplicated; F19.90 Other psychoactive substance use, unspecified, uncomplicated; N18.9 Chronic kidney disease, unspecified; E78.5 Hyperlipidemia, unspecified; B95.7 Other staphylococcus as the cause of diseases classified elsewhere; E11.51 Type 2 diabetes mellitus with diabetic peripheral angiopathy without gangrene; J44.0 Chronic obstructive pulmonary disease with (acute) lower respiratory infection; E87.6 Hypokalemia; Z91.19 Patient's noncompliance with other medical treatment and regimen; Z79.4 Long term (current) use of insulin; Z90.5 Acquired absence of kidney; Z99.81 Dependence on supplemental oxygen; Z88.6 Allergy status to analgesic agent; Z88.2 Allergy status to sulfonamides
CPT/HCPCS: 36415; 36600; 71045; 71046; 76770; 80048; 80053; 80061; 82435; 82550; 82803; 82947; 82948; 83036; 83605; 83735; 83880; 84100; 84132; 84295; 84443; 84484; 84550; 85018; 85025; 85027; 85378; 85610; 85730; 87040; 87071; 87077; 87186; 87205; 93005; 93306; 93970; 94640; 94660; 94664; 94760; 97039; 99291; G0378; J0696; J1450; J1650; J1815; J1956; J2020; J2270; J2405; J2543; J2930; J3370; J3490; J7040

== ENCOUNTER 2019-08-26 14:27 | Inpatient (IN) | payer MEDICAID ==
[~2019-08-26] VITALS: Ht 185.4 cm; Wt 200.6 kg
[~2019-08-26 14:27] MED LIST changes: -ALBU8.5H8 IH; +Calcium Acetate PO; +Folic Acid/Vitamin B Comp W-C PO; +IPRA3AMP24 IH; +LEVO500T2 PO; +LINE600T14 PO; +METO25 PO; -hydrocodon; -protonix PO
[2019-08-26] MEDS ORDERED: IPRATROPIUM/ALBUTEROL SULFATE 3 ML SOLUTION IH ONE (14:59)
[2019-08-26] MEDS ORDERED: FUROSEMIDE 10 MG/ML 4ML VIAL ONE (15:08)
[2019-08-26] MEDS ORDERED: NITROGLYCERIN 1GM/1 INCH PACKET TD ONE (15:08)
[2019-08-26 15:09] LABS: CREATININE 1.6 mg/dL (0.5-1.5)
[2019-08-26 15:12] LABS: INR 1.02 (0.85-1.15); PARTIAL THROMBOPLASTIN TIME 29.5 SEC (26.3-35.5); PROTHROMBIN TIME 10.7 SEC (9.6-11.6)
[2019-08-26 15:14] LABS: ALBUMIN 2.9 g/dL (3.5-5.0); BILIRUBIN,TOTAL 0.5 mg/dL (0.2-1.0); TOTAL PROTEIN, SERUM 7.9 g/dL (6.0-8.3)
[2019-08-26 15:16] LABS: BASOPHILS % (AUTO) 0.8 % (0.0-5.0); EOSINOPHILS % (AUTO) 2.8 % (0.0-8.0); HEMATOCRIT 45.8 % (42-54); LYMPHOCYTES % (AUTO) 12.1 % (21.0-51.0); MEAN CORPUSCULAR HEMOGLOBIN 29.3 pg (27.0-33.0); MEAN CORPUSCULAR HGB CONC 32.9 g/dL (32.0-36.0); MONOCYTES % (AUTO) 6.6 % (3.0-13.0); NEUTROPHILS % (AUTO) 77.7 % (40.0-77.0); NUCLEATED RED BLOOD CELLS 0.1 % (0.0-0.19); PLATELET COUNT (AUTO) 258 K/uL (130-400); RED BLOOD CELL COUNT(AUTO) 5.14 MIL/uL (4.50-6.20); RED CELL DISTRIBUTION WIDTH 15.2 % (11.0-15.5); WHITE BLOOD COUNT (AUTO) 6.1 K/uL (4.8-10.8)
[2019-08-26 15:25] LABS: B-TYPE NATRIURETIC PEPTIDE 37 pg/mL (0-100)
[2019-08-26 15:29] LABS: APPEARANCE,URINE Cloudy (CLEAR); BILIRUBIN,URINE Negative (NEGATIVE); COLOR,URINE Dark Yellow (YELLOW); GLUCOSE, URINE (UA) 250 mg/dL (NEGATIVE); KETONES,URINE Trace mg/dL (NEGATIVE); LEUKOCYTE ESTERASE ,URINE Trace (NEGATIVE); NITRATE,URINE Negative (NEGATIVE); OCCULT BLOOD,URINE Large (NEGATIVE); PH,URINE 5.5 (5.0-8.0); PROTEIN,URINE >=1000 mg/dL (NEGATIVE)
[2019-08-26 15:37] LABS: AMPHET/METH SCREEN,URINE NEGATIVE (NEGATIVE); BARBITURATE SCREEN, URINE NEGATIVE (NEGATIVE); BENZODIAZEPINES SCREEN,URINE NEGATIVE (NEGATIVE); CANNABINOID SCREEN,URINE NEGATIVE (NEGATIVE); COCAINE SCREEN,URINE NEGATIVE (NEGATIVE); OPIATE SCREEN,URINE POSITIVE (NEGATIVE); PHENCYCLIDINE SCREEN,URINE NEGATIVE (NEGATIVE)
[2019-08-26 15:40] LABS: BACTERIA,URINE Moderate /HPF (None Seen); MUCUS,URINE Few LPF (None Seen); SQUAMOUS EPITHELIAL CELL,UR 0-2 /HPF (0-2)
[2019-08-26] MEDS ORDERED: METHYLPREDNISOLONE SOD SUCC 125MG/2ML VIAL ONE (15:51)
[2019-08-26 16:20] LABS: ABG BASE EXCESS 6.5 mmol/L (-2.0-3.0); ABG HCO3 35.8 mmol/L (21.0-28.0); ABG OXYGEN SATURATION 89.3 % (95.0-99.0); ABG PCO2 74 mmHg (35-48)
[2019-08-26] MEDS: METHYLPREDNISOLONE SOD SUCC 125MG/2ML VIAL IV SCH (16:30)
[2019-08-26] MEDS ORDERED: ACETAMINOPHEN 325 MG TAB PO PRN ×2 (16:30)
[2019-08-26] MEDS ORDERED: ONDANSETRON HCL 4 MG/2 ML VIAL IV PRN (16:30)
[2019-08-26 17:20] VITALS: BP 153/89
[2019-08-26] MEDS ORDERED: GLUCAGON 1MG KIT 1 MG ML IM PRN (17:45)
[2019-08-26] MEDS ORDERED: DEXTROSE 50%-WATER 50 ML DISP.SYRIN IV PRN (17:45)
[2019-08-26] MEDS: AZITHROMYCIN 500MG+NS 250ML 250 ML IV SCH (18:01)
[2019-08-26] MEDS ORDERED: LEVO500T89 PO (18:34)
[2019-08-26] MEDS ORDERED: FOLI0.8T22 PO (18:34)
--- NOTE | 2019-08-26 18:48 | NUR ---
DR. DEVLIN NOTIFIED RE:CONSULT. MADE AWARE OF ABG'S AND MEDICATION REGIMEN; VERBALIZED UNDERSTANDING. ORDER RECEIVED.
[2019-08-26] MEDS: IPRATROPIUM/ALBUTEROL SULFATE 3 ML SOLUTION IH SCH ×2 (19:31→21:26)
[2019-08-26 19:49] VITALS: BP 133/72
[2019-08-26] MEDS: FAMOTIDINE/PF 20 MG/2 ML VIAL IV SCH (20:20)
[2019-08-26] MEDS: FUROSEMIDE 10 MG/ML 2ML VIAL IV SCH (20:21)
[2019-08-26] MEDS: INSULIN HUMULIN R 100 UNIT/ML 3ML SQ SCH (20:55)
[2019-08-26] MEDS ORDERED: FAMOTIDINE/PF 20 MG/2 ML VIAL IV SCH (21:00)
[2019-08-26 23:33] VITALS: BP 131/73
[2019-08-27] MEDS: IPRATROPIUM/ALBUTEROL SULFATE 3 ML SOLUTION IH SCH ×6 (01:05→21:37)
[2019-08-27] MEDS: METHYLPREDNISOLONE SOD SUCC 125MG/2ML VIAL IV SCH ×3 (01:12→16:30)
[2019-08-27 03:48] VITALS: BP 126/70
[2019-08-27 04:43] LABS: BASOPHILS % (AUTO) 0.3 % (0.0-5.0); EOSINOPHILS % (AUTO) 0.1 % (0.0-8.0); LYMPHOCYTES % (AUTO) 4.7 % (21.0-51.0); MEAN CORPUSCULAR HEMOGLOBIN 28.8 pg (27.0-33.0); MEAN CORPUSCULAR HGB CONC 32.3 g/dL (32.0-36.0); MEAN CORPUSCULAR VOLUME 89.3 fL (79-99); MONOCYTES % (AUTO) 0.4 % (3.0-13.0); NEUTROPHILS % (AUTO) 94.5 % (40.0-77.0); PLATELET COUNT (AUTO) 239 K/uL (130-400); RED BLOOD CELL COUNT(AUTO) 5.15 MIL/uL (4.50-6.20); RED CELL DISTRIBUTION WIDTH 15.1 % (11.0-15.5); WHITE BLOOD COUNT (AUTO) 6.8 K/uL (4.8-10.8)
[2019-08-27 05:03] LABS: B-TYPE NATRIURETIC PEPTIDE 81 pg/mL (0-100)
[2019-08-27 05:11] LABS: ALBUMIN 2.7 g/dL (3.5-5.0); BILIRUBIN,TOTAL 0.5 mg/dL (0.2-1.0); CREATININE 1.9 mg/dL (0.5-1.5); POTASSIUM 5.2 mmol/L (3.5-5.1); TOTAL PROTEIN, SERUM 7.4 g/dL (6.0-8.3)
[2019-08-27] MEDS: INSULIN HUMULIN R 100 UNIT/ML 3ML SQ SCH ×2 (06:39→11:32)
[2019-08-27 07:00] VITALS: BP 134/76
--- NOTE | 2019-08-27 07:50 | NUR ---
ASSESSMENT ENCOUNTERED PT ASLEEP BUT AROUSEABLE, A&OX3, CALM COOPERATIVE AND DOES NOT APPEAR TO BE IN ANY DISTRESS NOR ANY NEURO DEFICITS PRESENT. PT DENIES PAIN, SOB, NAUSEA BUT DOES C/O INTERMITTENT COUGH. PT IS ABLE TO TOLERATE FOODS, FLUIDS AND MEDICATION WITH NO THROAT CLEARING OR COUGH. CALL LIGHT WITHIN REACH.
[2019-08-27] MEDS: CEFTRIAXONE SODIUM 1 GM IVP SCH (09:32)
[2019-08-27] MEDS: FUROSEMIDE 10 MG/ML 2ML VIAL IV SCH (09:32)
[2019-08-27] MEDS: FAMOTIDINE/PF 20 MG/2 ML VIAL IV SCH ×2 (09:33→21:37)
[2019-08-27] MEDS: AZITHROMYCIN 500MG+NS 250ML 250 ML IV SCH (09:33)
[2019-08-27] MEDS: ENOXAPARIN SODIUM 40 MG/0.4 ML SYRINGE SQ SCH (09:33)
[2019-08-27] MEDS: FOLIC ACID/VITAMIN B COMP W-C 1 MG CAP/TAB PO SCH (09:34)
[2019-08-27 11:00] VITALS: BP 127/61
[2019-08-27 12:47] LABS: POTASSIUM,URINE RANDOM 51 mmol/L (25-125); SODIUM,URINE RANDOM 74 mmol/l (40-220)
--- NOTE | 2019-08-27 14:26 | NUR ---
D/C PLAN CM spoke to pt regarding d/c planning. Pt is readmission from about two weeks ago. [facility] home setting remains the same. Pt lives with spouse and daughter. [facility] daughter assists in care as needed. Pt has wk, w/c, nebulizer, cpap, and home o2. Pt states he completed abx prescribed at last discharge from hospital but returned to PCP office with same symptoms. States he was prescribed another round of abx and still did not feel well. CM offered short term snf/rehab as possible d/c option. Pt declined at this time. [facility] family can assist. Plan to home. CM to f/u. Addendum: 08/27/19 at 1429 by CARMEL KURTZ Amended: Links added.
[2019-08-27 14:32] LABS: APPEARANCE,URINE Clear (CLEAR); BILIRUBIN,URINE Negative (NEGATIVE); COLOR,URINE Yellow (YELLOW); GLUCOSE, URINE (UA) >=1000 mg/dL (NEGATIVE); KETONES,URINE Negative (NEGATIVE); LEUKOCYTE ESTERASE ,URINE Negative (NEGATIVE); NITRATE,URINE Negative (NEGATIVE); OCCULT BLOOD,URINE Small (NEGATIVE); PROTEIN,URINE POS 2+ mg/dL (NEGATIVE); UROBILINOGEN,URINE 0.2 mg/dL (0.2-1.0)
[2019-08-27 14:40] LABS: POTASSIUM,URINE RANDOM 24 mmol/L (25-125); SODIUM,URINE RANDOM 69 mmol/l (40-220)
[2019-08-27 14:42] LABS: BACTERIA,URINE Few /HPF (None Seen); MUCUS,URINE Few LPF (None Seen); SQUAMOUS EPITHELIAL CELL,UR 0-2 /HPF (0-2)
[2019-08-27 15:00] VITALS: BP 129/49
[2019-08-27] MEDS ORDERED: DEXTROSE 50%-WATER 50 ML DISP.SYRIN IV PRN (16:15)
[2019-08-27] MEDS ORDERED: GLUCAGON 1MG KIT 1 MG ML IM PRN (16:15)
[2019-08-27] MEDS: INSULIN LISPRO 100 UNIT/ML 3ML SQ SCH (16:30)
[2019-08-27] MEDS ORDERED: INSULIN LISPRO 100 UNIT/ML 3ML SQ SCH (16:30)
[2019-08-27] MEDS ORDERED: BUMETANIDE 0.25 MG/ML 10 ML VIAL IV SCH (16:45)
[2019-08-27] MEDS: BUMETANIDE 0.25 MG/ML 10 ML 80 ML IV SCH (18:00)
[2019-08-27] MEDS ORDERED: SODIUM CHLORIDE 3% FOR INHALATION 4 ML/AMP VIAL.NEB IH ONE (18:02)
[2019-08-27 20:00] VITALS: BP 136/77
[2019-08-27] MEDS ORDERED: INSULIN GLARGINE 100 UNITS/ML 10 ML VIAL SQ SCH (21:00)
[2019-08-27] MEDS: METOPROLOL TARTRATE 25 MG TAB PO SCH (21:37)
[2019-08-27 23:53] VITALS: BP 143/69
[2019-08-28] MEDS ORDERED: METHYLPREDNISOLONE SOD SUCC 125MG/2ML VIAL IV SCH (00:30)
[2019-08-28 04:11] VITALS: BP 143/89
[2019-08-28 04:40] LABS: HEMATOCRIT 44.6 % (42-54); MEAN CORPUSCULAR HEMOGLOBIN 28.8 pg (27.0-33.0); MEAN CORPUSCULAR HGB CONC 32.5 g/dL (32.0-36.0); MEAN CORPUSCULAR VOLUME 88.6 fL (79-99); NUCLEATED RED BLOOD CELLS 0.1 % (0.0-0.19); PLATELET COUNT (AUTO) 244 K/uL (130-400); RED BLOOD CELL COUNT(AUTO) 5.03 MIL/uL (4.50-6.20); WHITE BLOOD COUNT (AUTO) 9.6 K/uL (4.8-10.8)
[2019-08-28 04:56] LABS: POTASSIUM 4.9 mmol/L (3.5-5.1)
[2019-08-28] MEDS: IPRATROPIUM/ALBUTEROL SULFATE 3 ML SOLUTION IH SCH ×5 (07:08→21:26)
[2019-08-28 08:03] VITALS: BP 154/79
[2019-08-28] MEDS: CEFTRIAXONE SODIUM 1 GM IVP SCH (10:33)
[2019-08-28] MEDS: FAMOTIDINE/PF 20 MG/2 ML VIAL IV SCH ×2 (10:33→21:43)
[2019-08-28] MEDS: METOPROLOL TARTRATE 25 MG TAB PO SCH ×2 (10:34→21:43)
[2019-08-28] MEDS: FOLIC ACID/VITAMIN B COMP W-C 1 MG CAP/TAB PO SCH (10:34)
[2019-08-28] MEDS: ENOXAPARIN SODIUM 40 MG/0.4 ML SYRINGE SQ SCH (10:35)
[2019-08-28] MEDS: INSULIN GLARGINE 100 UNITS/ML 10 ML VIAL SQ SCH ×2 (10:44→21:25)
[2019-08-28] MEDS: INSULIN LISPRO 100 UNIT/ML 3ML SQ SCH ×3 (11:27→17:24)
[2019-08-28 11:28] VITALS: BP 147/82
[2019-08-28] MEDS: BUMETANIDE 0.25 MG/ML 10 ML 80 ML IV SCH (11:39)
[2019-08-28] MEDS ORDERED: FLUOXETINE HCL 20 MG CAPSULE PO SCH (13:00)
--- NOTE | 2019-08-28 14:54 | NUR ---
PSYCH MD RECOMMENDATIONS PATIENT MADE AWARE OF PSYCH MD RECOMMENDATIONS IN REGARDS TO PT EVAL AND EXERCISE IN A LYING AND SITTING MANNER. ALSO, MADE AWARE OF PROZAC 40MG PO Q AM C/ FIRST DOSE NOW. HOWEVER, PATIENT REFUSED AT THIS TIME. STATED HE WANTS TO SPEAK C/ FIRST. WILL TRY AGAIN AT A LATER TIME.
[2019-08-28 15:59] VITALS: BP 132/79
[2019-08-28] MEDS: AZITHROMYCIN 500MG+NS 250ML 250 ML IV SCH (17:27)
[2019-08-28 19:22] VITALS: BP 140/84
[2019-08-28 23:40] VITALS: BP 140/81
[2019-08-29] MEDS: IPRATROPIUM/ALBUTEROL SULFATE 3 ML SOLUTION IH SCH ×6 (01:38→21:43)
[2019-08-29 04:10] LABS: ABG BASE EXCESS 8.8 mmol/L (-2.0-3.0); ABG HCO3 36.9 mmol/L (21.0-28.0); ABG OXYGEN SATURATION 93.5 % (95.0-99.0); ABG PCO2 66 mmHg (35-48)
[2019-08-29 04:12] VITALS: BP 137/80
[2019-08-29 04:39] LABS: BASOPHILS % (AUTO) 0.2 % (0.0-5.0); EOSINOPHILS % (AUTO) 1.2 % (0.0-8.0); HEMATOCRIT 45.2 % (42-54); LYMPHOCYTES % (AUTO) 10.7 % (21.0-51.0); MEAN CORPUSCULAR HEMOGLOBIN 29.2 pg (27.0-33.0); MEAN CORPUSCULAR VOLUME 88.4 fL (79-99); MONOCYTES % (AUTO) 9.8 % (3.0-13.0); NEUTROPHILS % (AUTO) 78.1 % (40.0-77.0); PLATELET COUNT (AUTO) 236 K/uL (130-400); RED BLOOD CELL COUNT(AUTO) 5.11 MIL/uL (4.50-6.20); RED CELL DISTRIBUTION WIDTH 14.9 % (11.0-15.5); WHITE BLOOD COUNT (AUTO) 8.8 K/uL (4.8-10.8)
[2019-08-29 05:12] LABS: B-TYPE NATRIURETIC PEPTIDE 59 pg/mL (0-100)
[2019-08-29 05:18] LABS: CREATININE 2.2 mg/dL (0.5-1.5); PHOSPHORUS 3.6 mg/dL (2.5-4.9)
[2019-08-29] MEDS: INSULIN LISPRO 100 UNIT/ML 3ML SQ SCH ×3 (06:46→17:37)
[2019-08-29 07:54] VITALS: BP 138/69
[2019-08-29] MEDS: FLUOXETINE HCL 20 MG CAPSULE PO SCH (09:00)
[2019-08-29] MEDS ORDERED: BENZOCAINE/MENTH/CETYLPYRD CL 1 EACH LOZENGE MM PRN (09:30)
[2019-08-29] MEDS: FOLIC ACID/VITAMIN B COMP W-C 1 MG CAP/TAB PO SCH (09:56)
[2019-08-29] MEDS: CEFTRIAXONE SODIUM 1 GM IVP SCH (09:56)
[2019-08-29] MEDS: FAMOTIDINE/PF 20 MG/2 ML VIAL IV SCH ×2 (09:56→21:55)
[2019-08-29] MEDS: METOPROLOL TARTRATE 25 MG TAB PO SCH ×2 (09:57→21:59)
[2019-08-29] MEDS: ENOXAPARIN SODIUM 40 MG/0.4 ML SYRINGE SQ SCH (09:57)
[2019-08-29] MEDS: INSULIN GLARGINE 100 UNITS/ML 10 ML VIAL SQ SCH ×2 (10:07→21:59)
[2019-08-29 11:34] VITALS: BP 133/73
[2019-08-29 15:21] VITALS: BP 162/90
[2019-08-29] MEDS: AZITHROMYCIN 500MG+NS 250ML 250 ML IV SCH (17:30)
[2019-08-29 19:47] VITALS: BP 133/74
[2019-08-29] MEDS: PREGABALIN 25 MG CAP PO SCH (21:54)
[2019-08-29 23:41] VITALS: BP 136/68
[2019-08-30] MEDS: IPRATROPIUM/ALBUTEROL SULFATE 3 ML SOLUTION IH SCH ×6 (01:34→21:24)
[2019-08-30 03:59] VITALS: BP 134/70
[2019-08-30 04:20] LABS: BASOPHILS % (AUTO) 0.5 % (0.0-5.0); EOSINOPHILS % (AUTO) 4.6 % (0.0-8.0); HEMATOCRIT 44.2 % (42-54); LYMPHOCYTES % (AUTO) 22.3 % (21.0-51.0); MEAN CORPUSCULAR HEMOGLOBIN 28.6 pg (27.0-33.0); MEAN CORPUSCULAR HGB CONC 32.3 g/dL (32.0-36.0); MEAN CORPUSCULAR VOLUME 88.5 fL (79-99); MONOCYTES % (AUTO) 11.9 % (3.0-13.0); NEUTROPHILS % (AUTO) 60.7 % (40.0-77.0); NUCLEATED RED BLOOD CELLS 0.1 % (0.0-0.19); PLATELET COUNT (AUTO) 243 K/uL (130-400); RED BLOOD CELL COUNT(AUTO) 4.99 MIL/uL (4.50-6.20); RED CELL DISTRIBUTION WIDTH 14.7 % (11.0-15.5); WHITE BLOOD COUNT (AUTO) 6.8 K/uL (4.8-10.8)
[2019-08-30 04:28] LABS: CREATININE 2.2 mg/dL (0.5-1.5); MAGNESIUM 1.9 mg/dL (1.80-2.40); PHOSPHORUS 4.4 mg/dL (2.5-4.9); POTASSIUM 4.2 mmol/L (3.5-5.1)
[2019-08-30 04:55] LABS: B-TYPE NATRIURETIC PEPTIDE 21 pg/mL (0-100)
[2019-08-30] MEDS: INSULIN LISPRO 100 UNIT/ML 3ML SQ SCH ×3 (06:24→16:49)
[2019-08-30 07:45] VITALS: BP 132/62
[2019-08-30] MEDS: FLUOXETINE HCL 20 MG CAPSULE PO SCH (09:00)
[2019-08-30] MEDS: FOLIC ACID/VITAMIN B COMP W-C 1 MG CAP/TAB PO SCH (09:07)
[2019-08-30] MEDS: CEFTRIAXONE SODIUM 1 GM IVP SCH (09:07)
[2019-08-30] MEDS: CALCIUM ACETATE 667 MG CAPSULE PO SCH ×3 (09:08→16:44)
[2019-08-30] MEDS: METOPROLOL TARTRATE 25 MG TAB PO SCH ×2 (09:08→21:00)
[2019-08-30] MEDS: PREGABALIN 25 MG CAP PO SCH ×3 (09:08→21:00)
[2019-08-30] MEDS: FUROSEMIDE 40 MG TABLET PO SCH (09:08)
[2019-08-30] MEDS: ENOXAPARIN SODIUM 40 MG/0.4 ML SYRINGE SQ SCH (09:14)
[2019-08-30] MEDS: INSULIN GLARGINE 100 UNITS/ML 10 ML VIAL SQ SCH ×2 (09:17→21:00)
[2019-08-30] MEDS: FAMOTIDINE/PF 20 MG/2 ML VIAL IV SCH ×2 (09:27→21:00)
[2019-08-30 12:04] VITALS: BP 124/77
[2019-08-30] MEDS: ZYVOX 600 MG TAB PO SCH ×2 (12:29→20:59)
--- NOTE | 2019-08-30 14:38 | NUR ---
RD NOTIFICATION DIET: HEART HEALTHY/ LOW SODIUM. PO INTAKE 100% AND HAS GOOD APPETITE. LBM: 08/[address] CONSULTS DUE TO CHF NUTRITION RECOMMENDATIONS. 1+ PITTING EDEMA, SKIN INTACT. PT STATED HE COOKS AND EATS ONE LARGE MEAL DAILY, USUALLY LATE AT NIGHT AND BEFORE BED. PT DOES NOT EAT MUCH THROUGHOUT THE DAY AND WAITS TO EAT WHEN HE GETS HOME. PT COULD NOT IDENTIFY FOODS TO AVOID/ RECOMMENDED. RD PROVIDED CHF AND DIABETIC NUTRITION EDUCATION. PT ASKED QUESTIONS, RD ANSWERED AND PT VERBALIZED UNDERSTANDING. EDUCATION MATERIALS PROVIDED AND BG GOALS SET WITH PT. PT IS CURIOUS TO KNOW HOW CONTROLLED HIS BG HAS BEEN IN THE PAST [address] RECOMMENDS A1C LAB DRAW TO DETERMINE BG CONTROL IN PAST [address] RECOMMENDS CONTINUE CURRENT DIET, ADD 90GMCCD TO DIET ORDER RD PROVIDED MEDICAL NUTRITION THERAPY, MATERIALS PROVIDED RECOMMEND A1C DRAW TO PROVIDE PT- GOALS SET WITH PT FROM RD RD WILL CONTINUE TO MONITOR AND F/U NEEDED, THANK YOU. Addendum: 08/30/19 at [address] Amended: Links added.
--- NOTE | 2019-08-30 14:44 | NUR ---
NUTRITION EDUCATION PT STATED HE COOKS AND EATS ONE LARGE MEAL DAILY, USUALLY LATE AT NIGHT AND BEFORE BED. PT DOES NOT EAT MUCH THROUGHOUT THE DAY AND WAITS TO EAT WHEN HE GETS HOME. PT COULD NOT IDENTIFY FOODS TO AVOID/ RECOMMENDED. RD PROVIDED CHF AND DIABETIC NUTRITION EDUCATION. PT ASKED QUESTIONS, RD ANSWERED AND PT VERBALIZED UNDERSTANDING. EDUCATION MATERIALS PROVIDED AND BG GOALS SET WITH PT. PT IS CURIOUS TO KNOW HOW CONTROLLED HIS BG HAS BEEN IN THE PAST [address] RECOMMENDS A1C LAB DRAW TO DETERMINE BG CONTROL IN PAST 3 MONTHS. Addendum: 08/30/19 at [address] Amended: Links added.
[2019-08-30 15:00] VITALS: BP 130/78
--- NOTE | 2019-08-30 16:12 | NUR ---
DR. MOON IN ROOM SPEAKING WITH PT.
[2019-08-30] MEDS: AZITHROMYCIN 500MG+NS 250ML 250 ML IV SCH (16:44)
[2019-08-30 19:36] VITALS: BP 134/79
--- NOTE | 2019-08-30 21:00 | NUR ---
glucometer blood sugar 113 lantus dose not given, pt stated he ate poorly
[2019-08-30 23:50] VITALS: BP 144/78
[2019-08-31] MEDS: IPRATROPIUM/ALBUTEROL SULFATE 3 ML SOLUTION IH SCH ×6 (01:15→21:40)
[2019-08-31 03:39] VITALS: BP 146/75
[2019-08-31 04:04] LABS: HEMATOCRIT 45.2 % (42-54); MEAN CORPUSCULAR HEMOGLOBIN 28.7 pg (27.0-33.0); MEAN CORPUSCULAR HGB CONC 32.8 g/dL (32.0-36.0); MEAN CORPUSCULAR VOLUME 87.6 fL (79-99); PLATELET COUNT (AUTO) 235 K/uL (130-400); RED BLOOD CELL COUNT(AUTO) 5.15 MIL/uL (4.50-6.20); RED CELL DISTRIBUTION WIDTH 14.9 % (11.0-15.5); WHITE BLOOD COUNT (AUTO) 5.8 K/uL (4.8-10.8)
[2019-08-31 04:17] LABS: CREATININE 2.2 mg/dL (0.5-1.5); POTASSIUM 3.7 mmol/L (3.5-5.1)
[2019-08-31] MEDS: INSULIN LISPRO 100 UNIT/ML 3ML SQ SCH ×3 (06:33→16:16)
[2019-08-31 07:57] VITALS: BP 136/85
[2019-08-31] MEDS: FLUOXETINE HCL 20 MG CAPSULE PO SCH (09:00)
[2019-08-31] MEDS: ZYVOX 600 MG TAB PO SCH ×2 (09:21→20:25)
[2019-08-31] MEDS: FOLIC ACID/VITAMIN B COMP W-C 1 MG CAP/TAB PO SCH (09:21)
[2019-08-31] MEDS: CALCIUM ACETATE 667 MG CAPSULE PO SCH ×3 (09:21→16:16)
[2019-08-31] MEDS: METOPROLOL TARTRATE 25 MG TAB PO SCH ×2 (09:21→20:25)
[2019-08-31] MEDS: ENOXAPARIN SODIUM 40 MG/0.4 ML SYRINGE SQ SCH (09:22)
[2019-08-31] MEDS: PREGABALIN 25 MG CAP PO SCH ×3 (09:22→20:25)
[2019-08-31] MEDS: FUROSEMIDE 40 MG TABLET PO SCH (09:22)
[2019-08-31] MEDS: CEFTRIAXONE SODIUM 1 GM IVP SCH (09:23)
[2019-08-31] MEDS: FAMOTIDINE/PF 20 MG/2 ML VIAL IV SCH ×2 (09:23→20:25)
[2019-08-31] MEDS: INSULIN GLARGINE 100 UNITS/ML 10 ML VIAL SQ SCH ×2 (09:25→20:25)
[2019-08-31 11:44] VITALS: BP 152/98
[2019-08-31] MEDS ORDERED: AMLODIPINE BESYLATE 2.5 MG TAB PO SCH (12:30)
[2019-08-31 12:44] VITALS: BP 139/75
--- NOTE | 2019-08-31 14:16 | NUR ---
RD UPDATE RD REVEALED A1C LABS WITH PT AND PROVIDED FURTHER DIET AND NUTRITION EDUCATION. PT IS VERY INTERESTED AND MOTIVATED IN MAKING POSITIVE LIFESTYLE CHANGES TO IMPROVE HIS DIET AND HEALTH STATUS. FURTHER EDUCATION MATERIALS PROVIDED TO PT AND BG GOALS WERE ESTABLISHED. RD WILL FOLLOW UP NEEDED, THANK YOU. Addendum: 08/31/19 at [address] Amended: Links added.
[2019-08-31 15:27] VITALS: BP 165/88
--- NOTE | 2019-08-31 16:15 | NUR ---
PT.'S SPOUSE AT BEDSIDE. THIS NURSE ASKED SPOUSE IF CPAP WAS BROUGHT TO HOSPITAL FOR INSPECTION REQUESTED TO PT. THIS MORNING ( PER ATTENDING MD REQUEST). SPOUSE STATES SHE FAILED TO BRING IT IN BUT WILL DO SO TOMORROW.
[2019-08-31] MEDS: AZITHROMYCIN 500MG+NS 250ML 250 ML IV SCH (16:16)
--- NOTE | 2019-08-31 16:26 | NUR ---
MORRO PLAN VISITED WITH PATIENTPavan VILLALTA FOR [facility]. INFO SENT. CALLED PER APARTMENT LEASING SPECIALIST THEY HAVE BEEN IN MEETINGS TODAY WILL CALL ME BACK ONCE THEY ARE OUT NO CALL OF YET. Addendum: 08/31/19 at 1629 by ANDREIA ORR RN CM Amended: Links added.
[2019-08-31 19:33] VITALS: BP 140/79
[2019-09-01] VITALS: BP 147/75
[2019-09-01] MEDS: IPRATROPIUM/ALBUTEROL SULFATE 3 ML SOLUTION IH SCH ×4 (02:00→13:56)
[2019-09-01 03:53] VITALS: BP 150/88
[2019-09-01 04:28] LABS: BASOPHILS % (AUTO) 0.4 % (0.0-5.0); HEMATOCRIT 45.5 % (42-54); LYMPHOCYTES % (AUTO) 23.2 % (21.0-51.0); MEAN CORPUSCULAR HEMOGLOBIN 29.3 pg (27.0-33.0); MEAN CORPUSCULAR VOLUME 88.6 fL (79-99); MONOCYTES % (AUTO) 11.7 % (3.0-13.0); NEUTROPHILS % (AUTO) 59.7 % (40.0-77.0); NUCLEATED RED BLOOD CELLS 0.1 % (0.0-0.19); PLATELET COUNT (AUTO) 204 K/uL (130-400); RED BLOOD CELL COUNT(AUTO) 5.13 MIL/uL (4.50-6.20); RED CELL DISTRIBUTION WIDTH 14.7 % (11.0-15.5); WHITE BLOOD COUNT (AUTO) 6.7 K/uL (4.8-10.8)
[2019-09-01 04:56] LABS: ALBUMIN 2.7 g/dL (3.5-5.0); BILIRUBIN,TOTAL 0.5 mg/dL (0.2-1.0); CREATININE 2.1 mg/dL (0.5-1.5); POTASSIUM 4.7 mmol/L (3.5-5.1); TOTAL PROTEIN, SERUM 6.6 g/dL (6.0-8.3)
[2019-09-01] MEDS: INSULIN LISPRO 100 UNIT/ML 3ML SQ SCH ×3 (06:21→17:12)
[2019-09-01] MEDS: CALCIUM ACETATE 667 MG CAPSULE PO SCH ×3 (08:09→17:09)
[2019-09-01 08:10] VITALS: BP 141/72
[2019-09-01] MEDS ORDERED: AMLODIPINE BESYLATE 2.5 MG TAB PO SCH (09:00)
[2019-09-01] MEDS: ENOXAPARIN SODIUM 40 MG/0.4 ML SYRINGE SQ SCH (09:00)
[2019-09-01] MEDS ORDERED: FLUO40CA7 PO (09:21)
[2019-09-01] MEDS ORDERED: FURO40TA7 PO (09:21)
[2019-09-01] MEDS ORDERED: LINE600T11 PO (09:21)
[2019-09-01] MEDS ORDERED: AMLO5TAB9 PO (09:21)
[2019-09-01] MEDS ORDERED: MUPI22O TP (09:23)
[2019-09-01] MEDS ORDERED: MUPIROCIN OINTMENT 22 GM TUBE TP SCH (09:30)
[2019-09-01] MEDS: FOLIC ACID/VITAMIN B COMP W-C 1 MG CAP/TAB PO SCH (10:58)
[2019-09-01] MEDS: FAMOTIDINE/PF 20 MG/2 ML VIAL IV SCH (10:58)
[2019-09-01] MEDS: CEFTRIAXONE SODIUM 1 GM IVP SCH (10:58)
[2019-09-01] MEDS: METOPROLOL TARTRATE 25 MG TAB PO SCH (10:59)
[2019-09-01] MEDS: ZYVOX 600 MG TAB PO SCH (10:59)
[2019-09-01] MEDS: PREGABALIN 25 MG CAP PO SCH ×2 (10:59→17:11)
[2019-09-01] MEDS: FUROSEMIDE 40 MG TABLET PO SCH (10:59)
[2019-09-01] MEDS: FLUOXETINE HCL 20 MG CAPSULE PO SCH (10:59)
--- NOTE | 2019-09-01 11:10 | NUR ---
CM NOTE [facility] FOLLOW UP, PER SMITH, PENDING AUTHORIZATION. WILL F/U FOR AUTH.
[2019-09-01] MEDS: INSULIN GLARGINE 100 UNITS/ML 10 ML VIAL SQ SCH (11:18)
[2019-09-01 12:04] VITALS: BP 143/94
[2019-09-01 12:15] VITALS: BP 144/60
[2019-09-01 12:30] VITALS: BP 146/66
== END 2019-09-01 17:30 | disposition home or self-care (01) | DRG 137 ==
LOC: EDH 14:27 → 2AH 14:28
PROVIDERS: ADMIT Internal Medicine; ATTEND Internal Medicine
PROC: 5A09357 Assistance with Respiratory Ventilation, Less than 24 Consecutive Hours, Continuous Positive Airway Pressure (ICD-10-PCS; principal; 2019-08-26)
PROC: 5A09357 Assistance with Respiratory Ventilation, Less than 24 Consecutive Hours, Continuous Positive Airway Pressure (ICD-10-PCS; 2019-08-27)
PROC: 5A09357 Assistance with Respiratory Ventilation, Less than 24 Consecutive Hours, Continuous Positive Airway Pressure (ICD-10-PCS; 2019-08-28)
PROC: 5A09357 Assistance with Respiratory Ventilation, Less than 24 Consecutive Hours, Continuous Positive Airway Pressure (ICD-10-PCS; 2019-08-31)
PROC: 5A09357 Assistance with Respiratory Ventilation, Less than 24 Consecutive Hours, Continuous Positive Airway Pressure (ICD-10-PCS; 2019-09-01)
DX: J15.212 Pneumonia due to Methicillin resistant Staphylococcus aureus (principal); J96.21 Acute and chronic respiratory failure with hypoxia; I50.31 Acute diastolic (congestive) heart failure; F32.2 Major depressive disorder, single episode, severe without psychotic features; N17.9 Acute kidney failure, unspecified; E66.2 Morbid (severe) obesity with alveolar hypoventilation; E11.22 Type 2 diabetes mellitus with diabetic chronic kidney disease; D64.9 Anemia, unspecified; J44.0 Chronic obstructive pulmonary disease with (acute) lower respiratory infection; I13.0 Hypertensive heart and chronic kidney disease with heart failure and stage 1 through stage 4 chronic kidney disease, or unspecified chronic kidney disease; N18.3 Chronic kidney disease, stage 3 (moderate); J96.22 Acute and chronic respiratory failure with hypercapnia; E87.5 Hyperkalemia; E83.52 Hypercalcemia; J44.1 Chronic obstructive pulmonary disease with (acute) exacerbation; E78.5 Hyperlipidemia, unspecified; T38.0X5A Adverse effect of glucocorticoids and synthetic analogues, initial encounter; Y92.89 Other specified places as the place of occurrence of the external cause; Z99.81 Dependence on supplemental oxygen; Z68.44 Body mass index [BMI] 60.0-69.9, adult; Z91.19 Patient's noncompliance with other medical treatment and regimen; Z90.5 Acquired absence of kidney; Z87.891 Personal history of nicotine dependence; Z79.4 Long term (current) use of insulin; Z91.11 Patient's noncompliance with dietary regimen; Z88.2 Allergy status to sulfonamides
CPT/HCPCS: 36415; 36600; 71045; 71250; 80048; 80053; 80305; 81001; 82306; 82550; 82803; 82947; 82948; 83605; 83735; 83880; 83935; 84100; 84133; 84145; 84300; 84484; 85025; 85027; 85610; 85730; 87040; 87071; 87077; 87186; 87205; 87486; 87581; 87633; 87641; 87798; 87804; 93005; 94640; 94660; 94664; 97039; 99291; G0378; J0456; J0696; J1650; J1815; J1940; J2930; J3490

== ENCOUNTER 2020-06-07 02:59 | Inpatient (IN) | payer MEDICAID ==
[~2020-06-07] VITALS: Ht 185.4 cm; Wt 196.9 kg
[~2020-06-07 02:59] MED LIST changes: +AMLO5TAB9 PO; -ASPI-1181 PO; +ASPI-1443 PO; +FLUO40CA7 PO; +FOLI0.8T22 PO; +FURO40TA7 PO; -Folic Acid/Vitamin B Comp W-C PO; -LEVO500T2 PO; +LINE600T11 PO; -LINE600T14 PO; +MUPI22O TP
[2020-06-07] MEDS ORDERED: FUROSEMIDE 10 MG/ML 4ML VIAL ONE (03:29)
[2020-06-07] MEDS ORDERED: ZOSYN 3.375GM+NS 50ML 50 ML IV ONE ×2 (03:30→12:37)
[2020-06-07] MEDS ORDERED: LORAZEPAM 2 MG/ML 1 ML VIAL ONE (03:30)
[2020-06-07 03:32] LABS: BASOPHILS % (AUTO) 0.5 % (0.0-5.0); EOSINOPHILS % (AUTO) 0.2 % (0.0-8.0); HEMATOCRIT 48.9 % (42-54); LYMPHOCYTES % (AUTO) 7.6 % (21.0-51.0); MEAN CORPUSCULAR VOLUME 96.3 fL (79-99); MONOCYTES % (AUTO) 6.2 % (3.0-13.0); NEUTROPHILS % (AUTO) 81.8 % (40.0-77.0); NUCLEATED RED BLOOD CELLS 0.4 % (0.0-0.19); PLATELET COUNT (AUTO) 295 K/uL (130-400); RED BLOOD CELL COUNT(AUTO) 5.08 MIL/uL (4.50-6.20); RED CELL DISTRIBUTION WIDTH 13.2 % (11.0-15.5); WHITE BLOOD COUNT (AUTO) 12.2 K/uL (4.8-10.8)
[2020-06-07 03:33] LABS: APPEARANCE,URINE Turbid (CLEAR); BILIRUBIN,URINE Negative (NEGATIVE); COLOR,URINE Yellow (YELLOW); GLUCOSE, URINE (UA) Negative (NEGATIVE); KETONES,URINE Negative (NEGATIVE); LEUKOCYTE ESTERASE ,URINE Large (NEGATIVE); NITRATE,URINE Negative (NEGATIVE); OCCULT BLOOD,URINE Large (NEGATIVE); PROTEIN,URINE 300 mg/dL (NEGATIVE)
[2020-06-07 03:41] LABS: AMPHET/METH SCREEN,URINE NEGATIVE (NEGATIVE); BARBITURATE SCREEN, URINE NEGATIVE (NEGATIVE); BENZODIAZEPINES SCREEN,URINE NEGATIVE (NEGATIVE); CANNABINOID SCREEN,URINE NEGATIVE (NEGATIVE); COCAINE SCREEN,URINE NEGATIVE (NEGATIVE); OPIATE SCREEN,URINE POSITIVE (NEGATIVE); PHENCYCLIDINE SCREEN,URINE NEGATIVE (NEGATIVE)
[2020-06-07 03:44] LABS: ALANINE AMINOTRANSFERASE 182 U/L (12-78); ALBUMIN 2.9 g/dL (3.5-5.0); ALCOHOL, BLOOD < 3 mg/dL (0-10); ASPARTATE AMINOTRANSFERASE 253 U/L (10-37); BILIRUBIN,TOTAL 0.4 mg/dL (0.2-1.0); CARBON DIOXIDE 22 mmol/L (21-32); CHLORIDE 100 mmol/L (101-111); CREATININE 4.6 mg/dL (0.5-1.5); GLOMERULAR FILTR. RATE CALC 14 mL/min (>60); GLUCOSE,RANDOM 356 mg/dL (70-105); SODIUM SERUM 140 mmol/L (136-145); TOTAL PROTEIN, SERUM 7.9 g/dL (6.0-8.3); UREA NITROGEN, BLOOD 33 mg/dL (7-18)
[2020-06-07 03:45] LABS: ABG BASE EXCESS -13.9 mmol/L (-2.0-3.0); ABG HCO3 16.2 mmol/L (21.0-28.0); ABG OXYGEN SATURATION 68.7 % (95.0-99.0); ABG PCO2 54 mmHg (35-48)
[2020-06-07 03:47] LABS: BACTERIA,URINE Many /HPF (None Seen); WBC,URINE TNTC /HPF (0-1)
[2020-06-07 03:48] LABS: POTASSIUM 6.1 mmol/L (3.5-5.1)
[2020-06-07 03:49] LABS: ACETAMINOPHEN < 1 mcg/mL (10-29); SALICYLATE < 2.8 mg/dL (2.8-20.0)
[2020-06-07 03:55] LABS: B-TYPE NATRIURETIC PEPTIDE 229 pg/mL (0-100)
[2020-06-07 03:57] LABS: AMMONIA 41 umol/L (11-32); INR 0.94 (0.85-1.15); PARTIAL THROMBOPLASTIN TIME 34.3 SEC (26.3-35.5); PROTHROMBIN TIME 10.2 SEC (9.6-11.6)
[2020-06-07 04:05] LABS: MYOGLOBIN 6570 ng/mL (10-92); TROPONIN I < 0.04 ng/mL (0.00-0.06)
[2020-06-07 04:07] LABS: CREATINE KINASE, TOTAL 1742 U/L (21-232)
[2020-06-07] MEDS: SODIUM CHLORIDE 0.9% 1000ML 1,000 ML IV SCH ×2 (04:50→14:50)
[2020-06-07] MEDS ORDERED: ONDANSETRON HCL 4 MG/2 ML VIAL IV PRN (05:00)
[2020-06-07] MEDS ORDERED: ACETAMINOPHEN 325 MG TAB PO PRN (05:00)
[2020-06-07] MEDS ORDERED: NOREPINEPHRINE 4MG/NS 250ML 250 ML IV PRN (05:30)
[2020-06-07] MEDS ORDERED: NOREPINEPHRINE 4MG/NS 250ML 250 ML IV ONE ×3 (05:33→16:32)
[2020-06-07] MEDS ORDERED: INSULIN HUMULIN R 100 UNIT/ML 3ML ONE ×5 (05:34→21:34)
[2020-06-07] MEDS: INSULIN HUMULIN R 100 UNIT/ML 3ML SQ SCH ×3 (06:00→18:00)
[2020-06-07] MEDS: HEPARIN SODIUM 5000UNIT/ML 1ML VIAL SQ SCH ×3 (06:00→22:00)
[2020-06-07 08:41] LABS: CREATININE 4.7 mg/dL (0.5-1.5)
[2020-06-07] MEDS ORDERED: CEFTRIAXONE SODIUM 1 GM ONE (08:43)
[2020-06-07] MEDS ORDERED: FAMOTIDINE/PF 20 MG/2 ML VIAL IV ONE (08:43)
[2020-06-07 08:50] LABS: POTASSIUM 6.7 mmol/L (3.5-5.1)
[2020-06-07 08:56] LABS: ABG BASE EXCESS -8.2 mmol/L (-2.0-3.0); ABG HCO3 20.8 mmol/L (21.0-28.0); ABG OXYGEN SATURATION 95.7 % (95.0-99.0); ABG PCO2 57 mmHg (35-48)
[2020-06-07] MEDS ORDERED: FAMOTIDINE/PF 20 MG/2 ML VIAL IV SCH (09:00)
[2020-06-07] MEDS ORDERED: SODIUM POLYSTYRENE SULFONATE 15 GM/60 ML ML ONE (09:39)
[2020-06-07] MEDS ORDERED: CALCIUM GLUCONATE 1 GM/10 ML VIAL IV ONE (09:40)
[2020-06-07] MEDS ORDERED: DEXTROSE 50%-WATER 50 ML DISP.SYRIN IV ONE (09:40)
[2020-06-07] MEDS ORDERED: LORAZEPAM 2 MG/ML 1 ML VIAL IVP PRN (09:45)
[2020-06-07] MEDS ORDERED: ZOSYN 3.375GM+NS 50ML 50 ML IV SCH (12:00)
[2020-06-07 13:07] LABS: CREATININE 4.4 mg/dL (0.5-1.5)
[2020-06-07 13:09] LABS: POTASSIUM 6.2 mmol/L (3.5-5.1)
[2020-06-07] MEDS ORDERED: HEPARIN SODIUM 5000UNIT/ML 1ML VIAL ONE (14:10)
--- NOTE | 2020-06-07 16:31 | NUR ---
MANUEL NOTE/IA UNABLE TO MEET WITH PATIENT, NEXT OF KIN CALLED, PAULETTE WALTON. PER SPOUSE, PATIENT LIVES WITH HER, NEEDS ASSISTANCE WITH ADLS, HAS USE OF OXYGEN CONCENTRATOR/PORTABLE FROM [facility] PATIENT, WC, SHOWER ANNA, NEBULIZER, PROVIDER SERVICES FROM [place] AT 32 HR PER WEEK, AND FEELS SAFE FOR PATIENT TO RETURN HOME ONCE DISCHARGED. Addendum: 06/07/20 at 1633 by NIHARIKA SHRESTHA RN CM Amended: Links added.
[2020-06-08] MEDS ORDERED: ZOSYN 3.375GM+NS 50ML 50 ML IV SCH
[2020-06-08] MEDS: SODIUM CHLORIDE 0.9% 1000ML 1,000 ML IV SCH ×3 (00:50→20:56)
[2020-06-08] MEDS ORDERED: NOREPINEPHRINE 4MG/NS 250ML 250 ML IV ONE (01:27)
[2020-06-08] MEDS ORDERED: ZOSYN 3.375GM+NS 50ML 50 ML IV ONE ×2 (04:40→12:22)
[2020-06-08] MEDS ORDERED: INSULIN HUMULIN R 100 UNIT/ML 3ML ONE ×2 (05:52→12:23)
[2020-06-08] MEDS: INSULIN HUMULIN R 100 UNIT/ML 3ML SQ SCH ×5 (06:00→23:55)
[2020-06-08] MEDS: HEPARIN SODIUM 5000UNIT/ML 1ML VIAL SQ SCH ×3 (06:00→21:05)
[2020-06-08] MEDS ORDERED: CEFTRIAXONE SODIUM 1 GM IV SCH (08:00)
[2020-06-08] MEDS ORDERED: FAMOTIDINE/PF 20 MG/2 ML VIAL IV ONE (09:33)
[2020-06-08 10:52] LABS: BASOPHILS % (AUTO) 0.4 % (0.0-5.0); HEMATOCRIT 46.9 % (42-54); LYMPHOCYTES % (AUTO) 7.5 % (21.0-51.0); MEAN CORPUSCULAR HGB CONC 30.3 g/dL (32.0-36.0); MEAN CORPUSCULAR VOLUME 92.5 fL (79-99); MONOCYTES % (AUTO) 7.1 % (3.0-13.0); NEUTROPHILS % (AUTO) 83.2 % (40.0-77.0); NUCLEATED RED BLOOD CELLS 0.2 % (0.0-0.19); PLATELET COUNT (AUTO) 253 K/uL (130-400); RED BLOOD CELL COUNT(AUTO) 5.07 MIL/uL (4.50-6.20); RED CELL DISTRIBUTION WIDTH 13.6 % (11.0-15.5); WHITE BLOOD COUNT (AUTO) 12.1 K/uL (4.8-10.8)
[2020-06-08 11:10] LABS: ABG BASE EXCESS -5.6 mmol/L (-2.0-3.0); ABG HCO3 24.8 mmol/L (21.0-28.0); ABG PCO2 72 mmHg (35-48)
[2020-06-08] MEDS: FAMOTIDINE/PF 20 MG/2 ML VIAL IV SCH (11:26)
[2020-06-08 11:38] LABS: ALBUMIN 2.6 g/dL (3.5-5.0); BILIRUBIN,TOTAL 0.4 mg/dL (0.2-1.0); CREATININE 5.2 mg/dL (0.5-1.5); TOTAL PROTEIN, SERUM 7.6 g/dL (6.0-8.3)
[2020-06-08 11:44] LABS: POTASSIUM 6.2 mmol/L (3.5-5.1)
[2020-06-08] MEDS ORDERED: SODIUM POLYSTYRENE SULFONATE 15 GM/60 ML ML PO NR (14:30)
[2020-06-08] MEDS: LINEZOLID 600 MG/ISO-OSM 300 ML IV SCH (14:45)
[2020-06-08 18:22] VITALS: BP 130/77
[2020-06-08 18:37] LABS: ABG HCO3 25.4 mmol/L (21.0-28.0); ABG OXYGEN SATURATION 98.5 % (95.0-99.0); ABG PCO2 65 mmHg (35-48)
[2020-06-08 19:00] VITALS: BP 131/81
[2020-06-08 20:00] VITALS: BP 120/75
[2020-06-08 21:00] VITALS: BP 118/76
[2020-06-08 22:00] VITALS: BP 125/82
[2020-06-08 23:00] VITALS: BP 137/87
[2020-06-09] VITALS (24 sets, daily range): BP systolic 119–160; BP diastolic 70–97
[2020-06-09] MEDS: LINEZOLID 600 MG/ISO-OSM 300 ML IV SCH ×2 (01:52→14:03)
[2020-06-09 04:13] LABS: BASOPHILS % (AUTO) 0.5 % (0.0-5.0); EOSINOPHILS % (AUTO) 2.2 % (0.0-8.0); HEMATOCRIT 46.1 % (42-54); LYMPHOCYTES % (AUTO) 9.5 % (21.0-51.0); MEAN CORPUSCULAR HEMOGLOBIN 27.8 pg (27.0-33.0); MEAN CORPUSCULAR HGB CONC 29.9 g/dL (32.0-36.0); MEAN CORPUSCULAR VOLUME 92.8 fL (79-99); MONOCYTES % (AUTO) 7.7 % (3.0-13.0); NEUTROPHILS % (AUTO) 79.3 % (40.0-77.0); PLATELET COUNT (AUTO) 259 K/uL (130-400); RED BLOOD CELL COUNT(AUTO) 4.97 MIL/uL (4.50-6.20); RED CELL DISTRIBUTION WIDTH 13.5 % (11.0-15.5); WHITE BLOOD COUNT (AUTO) 8.5 K/uL (4.8-10.8)
[2020-06-09 04:32] LABS: ALBUMIN 2.5 g/dL (3.5-5.0); BILIRUBIN,TOTAL 0.4 mg/dL (0.2-1.0); CREATININE 5.5 mg/dL (0.5-1.5); POTASSIUM 5.1 mmol/L (3.5-5.1); TOTAL PROTEIN, SERUM 7.5 g/dL (6.0-8.3)
[2020-06-09] MEDS: HEPARIN SODIUM 5000UNIT/ML 1ML VIAL SQ SCH ×3 (06:05→21:03)
[2020-06-09] MEDS: INSULIN HUMULIN R 100 UNIT/ML 3ML SQ SCH ×2 (06:06→12:24)
[2020-06-09 06:38] LABS: ABG BASE EXCESS -4.6 mmol/L (-2.0-3.0); ABG HCO3 22.6 mmol/L (21.0-28.0); ABG OXYGEN SATURATION 98.3 % (95.0-99.0); ABG PCO2 50 mmHg (35-48)
[2020-06-09] MEDS: SODIUM CHLORIDE 0.9% 1000ML 1,000 ML IV SCH (06:50)
[2020-06-09] MEDS: CEFTRIAXONE SODIUM 1 GM IV SCH (08:41)
[2020-06-09] MEDS: FAMOTIDINE/PF 20 MG/2 ML VIAL IV SCH (08:41)
[2020-06-09 09:46] LABS: HEMOGLOBIN A1C 10.1 % (4.0-6.0)
--- NOTE | 2020-06-09 11:33 | NUR ---
NOTIFIED DR PAINTING'S OFFICE OF CONSULT, STATES HE WILL CALL THE UNIT BACK.
[2020-06-09] MEDS ORDERED: LACTULOSE 20 GM/30 ML UDCUP PO PRN (13:00)
[2020-06-09] MEDS ORDERED: INSULIN LISPRO 100 UNIT/ML 3ML SQ SCH (16:30)
[2020-06-09] MEDS: INSULIN LISPRO 100 UNIT/ML 3ML SQ SCH ×2 (18:16→20:23)
[2020-06-09] MEDS: INSULIN GLARGINE 100 UNITS/ML 10 ML VIAL SQ SCH (20:24)
[2020-06-09] MEDS ORDERED: INSULIN GLARGINE 100 UNITS/ML 10 ML VIAL SQ SCH (21:00)
[2020-06-10] VITALS (13 sets, daily range): BP systolic 114–169; BP diastolic 62–96
[2020-06-10] MEDS: LINEZOLID 600 MG/ISO-OSM 300 ML IV SCH ×2 (01:45→14:04)
[2020-06-10 03:35] LABS: BASOPHILS % (AUTO) 0.6 % (0.0-5.0); EOSINOPHILS % (AUTO) 3.1 % (0.0-8.0); HEMATOCRIT 42.7 % (42-54); LYMPHOCYTES % (AUTO) 10.6 % (21.0-51.0); MEAN CORPUSCULAR HGB CONC 30.7 g/dL (32.0-36.0); MEAN CORPUSCULAR VOLUME 91.2 fL (79-99); MONOCYTES % (AUTO) 9.7 % (3.0-13.0); NEUTROPHILS % (AUTO) 75.3 % (40.0-77.0); PLATELET COUNT (AUTO) 266 K/uL (130-400); RED BLOOD CELL COUNT(AUTO) 4.68 MIL/uL (4.50-6.20); RED CELL DISTRIBUTION WIDTH 13.5 % (11.0-15.5); WHITE BLOOD COUNT (AUTO) 6.7 K/uL (4.8-10.8)
[2020-06-10 03:48] LABS: ALANINE AMINOTRANSFERASE 510 U/L (12-78); ALBUMIN 2.5 g/dL (3.5-5.0); ASPARTATE AMINOTRANSFERASE 166 U/L (10-37); BILIRUBIN,DIRECT 0.4 mg/dL (0.0-0.3); BILIRUBIN,TOTAL 0.4 mg/dL (0.2-1.0); CARBON DIOXIDE 29 mmol/L (21-32); CHLORIDE 107 mmol/L (101-111); CREATININE 4.7 mg/dL (0.5-1.5); GLOMERULAR FILTR. RATE CALC 14 mL/min (>60); POTASSIUM 4.1 mmol/L (3.5-5.1); SODIUM SERUM 145 mmol/L (136-145); TOTAL PROTEIN, SERUM 7.6 g/dL (6.0-8.3); UREA NITROGEN, BLOOD 49 mg/dL (7-18)
[2020-06-10 04:01] LABS: B-TYPE NATRIURETIC PEPTIDE 146 pg/mL (0-100)
[2020-06-10 04:41] LABS: ABG BASE EXCESS 0.1 mmol/L (-2.0-3.0); ABG HCO3 26.3 mmol/L (21.0-28.0); ABG OXYGEN SATURATION 97.8 % (95.0-99.0); ABG PCO2 49 mmHg (35-48)
[2020-06-10 05:09] LABS: AMMONIA < 3 umol/L (11-32)
[2020-06-10] MEDS: HEPARIN SODIUM 5000UNIT/ML 1ML VIAL SQ SCH ×3 (05:13→22:04)
[2020-06-10] MEDS: INSULIN LISPRO 100 UNIT/ML 3ML SQ SCH ×7 (05:43→21:00)
[2020-06-10 06:26] LABS: GLUCOSE,RANDOM 150 mg/dL (70-105)
[2020-06-10] MEDS: FAMOTIDINE/PF 20 MG/2 ML VIAL IV SCH (08:20)
[2020-06-10] MEDS: CEFTRIAXONE SODIUM 1 GM IV SCH (08:20)
--- NOTE | 2020-06-10 10:15 | NUR ---
TRANSFER received telephone report 1030 pt transferred by bed 02 at [address] pt denies discomfort resting no complaints voiced
--- NOTE | 2020-06-10 10:15 | NUR ---
Report to REZA Randall; verbal order to downgrade patient, new order for pain meds given, vss, transferred by RN to 321 on 4liters/o2
--- NOTE | 2020-06-10 10:45 | NUR ---
DYSPHAGIA EVAL COMPLETED. -S/S OF ASPIRATION. RECOMMEND REGULAR TEXTURE, THIN LIQUIDS; PILLS WHOLE WITH LIQUIDS. Addendum: 06/10/20 at 1422 by TITA LEWIS, [facility] ST Amended: Links added.
--- NOTE | 2020-06-10 11:40 | NUR ---
REPORT verbal report given to Ke COBB
[2020-06-10] MEDS: INSULIN GLARGINE 100 UNITS/ML 10 ML VIAL SQ SCH (22:04)
[2020-06-11 00:26] VITALS: BP 147/82
[2020-06-11] MEDS: LINEZOLID 600 MG/ISO-OSM 300 ML IV SCH ×2 (02:11→15:40)
[2020-06-11 04:19] VITALS: BP 150/80
[2020-06-11 04:32] LABS: BASOPHILS % (AUTO) 0.7 % (0.0-5.0); EOSINOPHILS % (AUTO) 3.6 % (0.0-8.0); HEMATOCRIT 40.3 % (42-54); MEAN CORPUSCULAR HEMOGLOBIN 27.6 pg (27.0-33.0); MEAN CORPUSCULAR HGB CONC 31.3 g/dL (32.0-36.0); MEAN CORPUSCULAR VOLUME 88.4 fL (79-99); MONOCYTES % (AUTO) 11.6 % (3.0-13.0); NEUTROPHILS % (AUTO) 67.2 % (40.0-77.0); PLATELET COUNT (AUTO) 254 K/uL (130-400); RED BLOOD CELL COUNT(AUTO) 4.56 MIL/uL (4.50-6.20); RED CELL DISTRIBUTION WIDTH 13.2 % (11.0-15.5); WHITE BLOOD COUNT (AUTO) 5.8 K/uL (4.8-10.8)
[2020-06-11 04:50] LABS: ALBUMIN 2.4 g/dL (3.5-5.0); BILIRUBIN,TOTAL 0.4 mg/dL (0.2-1.0); CREATININE 3.6 mg/dL (0.5-1.5); POTASSIUM 3.9 mmol/L (3.5-5.1)
[2020-06-11] MEDS: INSULIN LISPRO 100 UNIT/ML 3ML SQ SCH ×7 (05:32→20:04)
[2020-06-11] MEDS: HEPARIN SODIUM 5000UNIT/ML 1ML VIAL SQ SCH ×3 (06:06→20:05)
[2020-06-11] MEDS: FAMOTIDINE/PF 20 MG/2 ML VIAL IV SCH (08:32)
[2020-06-11] MEDS: CEFTRIAXONE SODIUM 1 GM IV SCH (08:32)
[2020-06-11 08:40] VITALS: BP 136/68
[2020-06-11 11:35] VITALS: BP 138/74
--- NOTE | 2020-06-11 12:08 | NUR ---
FOLLOW UP COMPLETED Pt TOLERATING REGULAR TEXTURE, THIN LIQUID DIET WITH NO OVERT S/S OF ASPIRATION. SKILLED SPEECH THERAPY IS NOT RECOMMENDED AT THIS TIME. Addendum: 06/11/20 at 1217 by TITA LEWIS, [facility] ST Amended: Links added.
[2020-06-11 12:33] LABS: CREATININE 3.4 mg/dL (0.5-1.5); POTASSIUM 3.8 mmol/L (3.5-5.1)
[2020-06-11] MEDS: HYDROMORPHONE 1 MG/1 ML AMP IVP PRN ×2 (13:19→20:06)
[2020-06-11 17:19] VITALS: BP 148/83
[2020-06-11 19:50] VITALS: BP 131/83
[2020-06-11] MEDS: INSULIN GLARGINE 100 UNITS/ML 10 ML VIAL SQ SCH (20:04)
[2020-06-11] MEDS: TRAMADOL /APAP 37.5MG/325MG TAB PO PRN (23:40)
[2020-06-12] VITALS (7 sets, daily range): BP systolic 138–159; BP diastolic 72–87
[2020-06-12] MEDS: HYDROMORPHONE 1 MG/1 ML AMP IVP PRN ×4 (02:27→20:31)
[2020-06-12] MEDS: LINEZOLID 600 MG/ISO-OSM 300 ML IV SCH ×2 (02:27→14:47)
[2020-06-12] MEDS: TRAMADOL /APAP 37.5MG/325MG TAB PO PRN ×2 (05:31→14:38)
[2020-06-12] MEDS: HEPARIN SODIUM 5000UNIT/ML 1ML VIAL SQ SCH ×3 (05:31→23:28)
[2020-06-12] MEDS: INSULIN LISPRO 100 UNIT/ML 3ML SQ SCH ×7 (05:32→20:37)
[2020-06-12 06:09] LABS: BASOPHILS % (AUTO) 0.4 % (0.0-5.0); EOSINOPHILS % (AUTO) 4.9 % (0.0-8.0); HEMATOCRIT 44.4 % (42-54); LYMPHOCYTES % (AUTO) 20.7 % (21.0-51.0); MEAN CORPUSCULAR HEMOGLOBIN 27.4 pg (27.0-33.0); MEAN CORPUSCULAR HGB CONC 31.1 g/dL (32.0-36.0); MEAN CORPUSCULAR VOLUME 88.3 fL (79-99); MONOCYTES % (AUTO) 11.7 % (3.0-13.0); NEUTROPHILS % (AUTO) 60.9 % (40.0-77.0); PLATELET COUNT (AUTO) 259 K/uL (130-400); RED BLOOD CELL COUNT(AUTO) 5.03 MIL/uL (4.50-6.20); RED CELL DISTRIBUTION WIDTH 13.2 % (11.0-15.5); WHITE BLOOD COUNT (AUTO) 4.9 K/uL (4.8-10.8)
[2020-06-12 06:19] LABS: CREATININE 3.1 mg/dL (0.5-1.5); POTASSIUM 4.9 mmol/L (3.5-5.1)
--- NOTE | 2020-06-12 06:19 | NUR ---
received report from christos golden nurse, assumed care, shift assessment done, 24 cc done, pain management given , pre and post pain assessment done, safety maintained.
[2020-06-12] MEDS: CEFTRIAXONE SODIUM 1 GM IV SCH (09:57)
[2020-06-12] MEDS: FAMOTIDINE/PF 20 MG/2 ML VIAL IV SCH (09:57)
--- NOTE | 2020-06-12 16:30 | NUR ---
CM NOTE/DCP MEET WITH PATIENT IN ROOM TO DISCUSS DISCHARGE PLANNING. PER PATIENT, WANTS TO GO HOME. INFORMED PATIENT THAT CONTINUATION OF ABT ARE NEEDED AND PENDING MD TO LET US KNOW ABT REGIMEN LENGHT. OPTIONS GIVEN BASED ON INSURANCE. PATIENT STATES HE WANTS TO THINK ABOUT IT. THIS CM TO FOLLOW UP IN AM.
[2020-06-12] MEDS: ACETAMINOPHEN 325 MG TAB PO PRN (19:00)
[2020-06-12] MEDS: INSULIN GLARGINE 100 UNITS/ML 10 ML VIAL SQ SCH (20:37)
[2020-06-13] MEDS: HYDROMORPHONE 1 MG/1 ML AMP IVP PRN ×3 (02:41→15:08)
[2020-06-13] MEDS: LINEZOLID 600 MG/ISO-OSM 300 ML IV SCH ×2 (02:41→15:28)
[2020-06-13 03:37] VITALS: BP 141/80
[2020-06-13 04:49] LABS: BASOPHILS % (AUTO) 0.3 % (0.0-5.0); EOSINOPHILS % (AUTO) 3.9 % (0.0-8.0); HEMATOCRIT 38.1 % (42-54); LYMPHOCYTES % (AUTO) 16.3 % (21.0-51.0); MEAN CORPUSCULAR HEMOGLOBIN 27.7 pg (27.0-33.0); MEAN CORPUSCULAR HGB CONC 27.3 g/dL (32.0-36.0); MEAN CORPUSCULAR VOLUME 101.6 fL (79-99); MONOCYTES % (AUTO) 10.4 % (3.0-13.0); NEUTROPHILS % (AUTO) 67.4 % (40.0-77.0); PLATELET COUNT (AUTO) 173 K/uL (130-400); RED BLOOD CELL COUNT(AUTO) 3.75 MIL/uL (4.50-6.20); RED CELL DISTRIBUTION WIDTH 13.4 % (11.0-15.5); WHITE BLOOD COUNT (AUTO) 3.6 K/uL (4.8-10.8)
[2020-06-13 06:04] LABS: ALBUMIN 2.5 g/dL (3.5-5.0); BILIRUBIN,TOTAL 0.3 mg/dL (0.2-1.0); CREATININE 2.7 mg/dL (0.5-1.5); POTASSIUM 4.1 mmol/L (3.5-5.1)
[2020-06-13] MEDS: HEPARIN SODIUM 5000UNIT/ML 1ML VIAL SQ SCH ×3 (06:35→23:48)
[2020-06-13] MEDS: INSULIN LISPRO 100 UNIT/ML 3ML SQ SCH ×7 (06:36→23:50)
[2020-06-13] MEDS: TRAMADOL /APAP 37.5MG/325MG TAB PO PRN (06:46)
[2020-06-13 08:00] VITALS: BP 153/86
[2020-06-13] MEDS: FAMOTIDINE/PF 20 MG/2 ML VIAL IV SCH (08:55)
[2020-06-13] MEDS: CEFTRIAXONE SODIUM 1 GM IV SCH (08:55)
[2020-06-13 12:00] VITALS: BP 166/83
[2020-06-13 16:00] VITALS: BP 143/51
[2020-06-13 20:00] VITALS: BP 140/91
[2020-06-13] MEDS ORDERED: HYDROMORPHONE HCL 0.5 MG/0.5 ML ML ONE (20:42)
[2020-06-13] MEDS ORDERED: INSULIN GLARGINE 100 UNITS/ML 10 ML VIAL SQ SCH (21:00)
[2020-06-14] VITALS (8 sets, daily range): BP systolic 125–171; BP diastolic 62–83
[2020-06-14] MEDS: LINEZOLID 600 MG/ISO-OSM 300 ML IV SCH ×2 (03:30→14:39)
[2020-06-14] MEDS: HYDROMORPHONE HCL 0.5 MG/0.5 ML ML IVP PRN ×4 (03:35→22:29)
[2020-06-14 05:08] LABS: BASOPHILS % (AUTO) 0.5 % (0.0-5.0); EOSINOPHILS % (AUTO) 3.7 % (0.0-8.0); HEMATOCRIT 39.1 % (42-54); LYMPHOCYTES % (AUTO) 18.3 % (21.0-51.0); MEAN CORPUSCULAR HEMOGLOBIN 27.8 pg (27.0-33.0); MEAN CORPUSCULAR HGB CONC 28.6 g/dL (32.0-36.0); MONOCYTES % (AUTO) 10.4 % (3.0-13.0); NEUTROPHILS % (AUTO) 65.2 % (40.0-77.0); PLATELET COUNT (AUTO) 188 K/uL (130-400); RED BLOOD CELL COUNT(AUTO) 4.03 MIL/uL (4.50-6.20); RED CELL DISTRIBUTION WIDTH 13.4 % (11.0-15.5); WHITE BLOOD COUNT (AUTO) 4.3 K/uL (4.8-10.8)
[2020-06-14 06:26] LABS: ALBUMIN 2.5 g/dL (3.5-5.0); BILIRUBIN,TOTAL 0.3 mg/dL (0.2-1.0); CREATININE 2.4 mg/dL (0.5-1.5); POTASSIUM 4.2 mmol/L (3.5-5.1); TOTAL PROTEIN, SERUM 7.2 g/dL (6.0-8.3)
[2020-06-14] MEDS: HEPARIN SODIUM 5000UNIT/ML 1ML VIAL SQ SCH ×3 (06:35→21:36)
[2020-06-14] MEDS: INSULIN LISPRO 100 UNIT/ML 3ML SQ SCH ×5 (06:48→21:34)
[2020-06-14] MEDS: CEFTRIAXONE SODIUM 1 GM IV SCH (09:24)
[2020-06-14] MEDS: FAMOTIDINE/PF 20 MG/2 ML VIAL IV SCH (09:24)
[2020-06-14] MEDS: ACETAMINOPHEN 325 MG TAB PO PRN (14:40)
[2020-06-14] MEDS ORDERED: INSULIN GLARGINE 100 UNITS/ML 10 ML VIAL SQ SCH (22:00)
[2020-06-15] MEDS: LINEZOLID 600 MG/ISO-OSM 300 ML IV SCH (02:51)
[2020-06-15 03:43] VITALS: BP 145/79
[2020-06-15 05:59] LABS: BASOPHILS % (AUTO) 0.5 % (0.0-5.0); HEMATOCRIT 43.5 % (42-54); LYMPHOCYTES % (AUTO) 18.6 % (21.0-51.0); MEAN CORPUSCULAR HEMOGLOBIN 27.4 pg (27.0-33.0); MEAN CORPUSCULAR HGB CONC 31.3 g/dL (32.0-36.0); MEAN CORPUSCULAR VOLUME 87.7 fL (79-99); MONOCYTES % (AUTO) 6.9 % (3.0-13.0); NEUTROPHILS % (AUTO) 68.6 % (40.0-77.0); PLATELET COUNT (AUTO) 247 K/uL (130-400); RED BLOOD CELL COUNT(AUTO) 4.96 MIL/uL (4.50-6.20); RED CELL DISTRIBUTION WIDTH 13.2 % (11.0-15.5); WHITE BLOOD COUNT (AUTO) 6.2 K/uL (4.8-10.8)
[2020-06-15] MEDS: HEPARIN SODIUM 5000UNIT/ML 1ML VIAL SQ SCH ×3 (06:00→21:13)
[2020-06-15] MEDS: INSULIN LISPRO 100 UNIT/ML 3ML SQ SCH ×7 (06:01→21:14)
[2020-06-15 06:20] LABS: ALBUMIN 2.8 g/dL (3.5-5.0); BILIRUBIN,TOTAL 0.5 mg/dL (0.2-1.0); CREATININE 2.2 mg/dL (0.5-1.5); POTASSIUM 4.4 mmol/L (3.5-5.1); TOTAL PROTEIN, SERUM 7.6 g/dL (6.0-8.3)
[2020-06-15] MEDS ORDERED: INSULIN LISPRO 100 UNIT/ML 3ML SQ SCH (08:00)
[2020-06-15 08:08] VITALS: BP 159/84
[2020-06-15] MEDS: HYDROMORPHONE HCL 0.5 MG/0.5 ML ML IVP PRN ×2 (09:15→17:30)
[2020-06-15] MEDS: FAMOTIDINE/PF 20 MG/2 ML VIAL IV SCH (09:15)
[2020-06-15] MEDS: CEFTRIAXONE SODIUM 1 GM IV SCH (09:15)
[2020-06-15 12:05] LABS: INR 0.95 (0.85-1.15); PARTIAL THROMBOPLASTIN TIME 28.2 SEC (26.3-35.5); PROTHROMBIN TIME 10.3 SEC (9.6-11.6)
[2020-06-15 12:19] VITALS: BP 174/85
[2020-06-15] MEDS: ZYVOX 600 MG TAB PO SCH (12:37)
[2020-06-15] MEDS: TRAMADOL /APAP 37.5MG/325MG TAB PO PRN (16:32)
[2020-06-15 17:22] VITALS: BP 150/79
[2020-06-15 19:57] VITALS: BP 148/81
[2020-06-15] MEDS ORDERED: INSULIN GLARGINE 100 UNITS/ML 10 ML VIAL SQ SCH ×2 (21:00)
[2020-06-16] VITALS: BP 149/83
[2020-06-16] MEDS: ZYVOX 600 MG TAB PO SCH ×3 (00:15→23:54)
[2020-06-16] MEDS: HYDROMORPHONE HCL 0.5 MG/0.5 ML ML IVP PRN ×2 (00:15→17:53)
[2020-06-16 03:59] VITALS: BP 170/86
[2020-06-16 05:54] LABS: BASOPHILS % (AUTO) 0.5 % (0.0-5.0); EOSINOPHILS % (AUTO) 5.1 % (0.0-8.0); HEMATOCRIT 43.9 % (42-54); LYMPHOCYTES % (AUTO) 19.9 % (21.0-51.0); MEAN CORPUSCULAR HEMOGLOBIN 28.1 pg (27.0-33.0); MEAN CORPUSCULAR HGB CONC 31.9 g/dL (32.0-36.0); MONOCYTES % (AUTO) 8.2 % (3.0-13.0); PLATELET COUNT (AUTO) 227 K/uL (130-400); RED BLOOD CELL COUNT(AUTO) 4.99 MIL/uL (4.50-6.20); RED CELL DISTRIBUTION WIDTH 13.2 % (11.0-15.5); WHITE BLOOD COUNT (AUTO) 6.1 K/uL (4.8-10.8)
[2020-06-16] MEDS: HEPARIN SODIUM 5000UNIT/ML 1ML VIAL SQ SCH ×3 (05:54→21:28)
[2020-06-16] MEDS: TRAMADOL /APAP 37.5MG/325MG TAB PO PRN ×3 (05:57→21:17)
[2020-06-16 06:09] LABS: INR 0.94 (0.85-1.15); PROTHROMBIN TIME 10.2 SEC (9.6-11.6)
[2020-06-16 06:27] LABS: ALBUMIN 2.7 g/dL (3.5-5.0); BILIRUBIN,TOTAL 0.4 mg/dL (0.2-1.0); CREATININE 2.2 mg/dL (0.5-1.5); POTASSIUM 4.5 mmol/L (3.5-5.1); TOTAL PROTEIN, SERUM 7.3 g/dL (6.0-8.3)
[2020-06-16] MEDS: INSULIN LISPRO 100 UNIT/ML 3ML SQ SCH ×7 (06:41→21:27)
[2020-06-16 08:27] VITALS: BP 166/79
[2020-06-16] MEDS: FAMOTIDINE/PF 20 MG/2 ML VIAL IV SCH (10:57)
[2020-06-16] MEDS: CEFTRIAXONE SODIUM 1 GM IV SCH (10:57)
[2020-06-16 11:34] VITALS: BP 168/84
[2020-06-16] MEDS ORDERED: LINE600T11 PO (15:04)
--- NOTE | 2020-06-16 15:05 | NUR ---
PLANS TO DISCHARGE PT HOME.
[2020-06-16 16:23] VITALS: BP 153/75
--- NOTE | 2020-06-16 17:53 | NUR ---
PT WAS UNABLE TO TRANSFER SAFELY FROM BED TO / FOR DISCHARGE. IT WAS AGREED BY THIS NURSE AND THE DISCHARGING PHYSICIAN DR GARBER TO NOT DISMISS THE PT. VERONICA LIFT WAS USED TO PUT THE PT BACK TO BED WHERE HE HAS RECEIVED PAIN MEDS AND HAS HIS BIPAP IN PLACE, HE IS NOW CALM AND COMFORTABLE.
[2020-06-16 20:00] VITALS: BP 157/74
[2020-06-16] MEDS: INSULIN GLARGINE 100 UNITS/ML 10 ML VIAL SQ SCH (21:28)
[2020-06-17] VITALS (7 sets, daily range): BP systolic 140–167; BP diastolic 74–86
[2020-06-17] MEDS: HYDROMORPHONE HCL 0.5 MG/0.5 ML ML IVP PRN ×3 (00:42→20:39)
[2020-06-17] MEDS: HEPARIN SODIUM 5000UNIT/ML 1ML VIAL SQ SCH ×3 (05:46→22:51)
[2020-06-17] MEDS: INSULIN LISPRO 100 UNIT/ML 3ML SQ SCH ×7 (06:48→20:42)
[2020-06-17] MEDS: CEFTRIAXONE SODIUM 1 GM IV SCH (08:31)
[2020-06-17] MEDS: FAMOTIDINE/PF 20 MG/2 ML VIAL IV SCH (08:31)
[2020-06-17] MEDS: TRAMADOL /APAP 37.5MG/325MG TAB PO PRN (08:32)
[2020-06-17] MEDS ORDERED: FENTANYL 50 MCG/HR PATCH TD SCH (10:00)
[2020-06-17] MEDS: ZYVOX 600 MG TAB PO SCH ×2 (12:19→22:43)
--- NOTE | 2020-06-17 13:24 | NUR ---
NARESH HOOKER PLAN TO IRU IF PATIENT AGREES. WILL FOLLOW UP
--- NOTE | 2020-06-17 18:20 | NUR ---
CONSULT FOR ORTHO, DR. CONTRERAS REF RIGHT TIBIAL PLATEAU FRACTURE. CALLED 'S CELL PHONE TO ADVISE OF CONSULT. ATTEMPTS WERE MADE TO ADVISE OF RABIA THROUGH ANSWERING SERVICE WITH NO RETURN CALL.
[2020-06-17] MEDS: INSULIN GLARGINE 100 UNITS/ML 10 ML VIAL SQ SCH (22:50)
[2020-06-18] MEDS: HYDROMORPHONE HCL 0.5 MG/0.5 ML ML IVP PRN ×4 (03:37→23:23)
[2020-06-18 03:58] VITALS: BP 146/88
[2020-06-18] MEDS: INSULIN LISPRO 100 UNIT/ML 3ML SQ SCH ×7 (06:02→21:00)
[2020-06-18] MEDS: HEPARIN SODIUM 5000UNIT/ML 1ML VIAL SQ SCH (06:06)
[2020-06-18 06:30] LABS: BASOPHILS % (AUTO) 0.6 % (0.0-5.0); HEMATOCRIT 42.8 % (42-54); LYMPHOCYTES % (AUTO) 21.1 % (21.0-51.0); MEAN CORPUSCULAR HEMOGLOBIN 28.3 pg (27.0-33.0); MEAN CORPUSCULAR HGB CONC 32.5 g/dL (32.0-36.0); MEAN CORPUSCULAR VOLUME 87.2 fL (79-99); MONOCYTES % (AUTO) 7.3 % (3.0-13.0); NEUTROPHILS % (AUTO) 64.7 % (40.0-77.0); PLATELET COUNT (AUTO) 235 K/uL (130-400); RED BLOOD CELL COUNT(AUTO) 4.91 MIL/uL (4.50-6.20); RED CELL DISTRIBUTION WIDTH 13.4 % (11.0-15.5); WHITE BLOOD COUNT (AUTO) 6.8 K/uL (4.8-10.8)
[2020-06-18 06:45] LABS: CREATININE 2.1 mg/dL (0.5-1.5); PHOSPHORUS 3.7 mg/dL (2.5-4.9); POTASSIUM 4.5 mmol/L (3.5-5.1)
[2020-06-18 07:30] VITALS: BP 161/86
[2020-06-18] MEDS: FAMOTIDINE/PF 20 MG/2 ML VIAL IV SCH (09:57)
[2020-06-18] MEDS: CEFTRIAXONE SODIUM 1 GM IV SCH (09:57)
[2020-06-18 11:00] VITALS: BP 145/81
[2020-06-18] MEDS: ZYVOX 600 MG TAB PO SCH ×2 (12:02→23:21)
[2020-06-18 16:00] VITALS: BP 142/79
[2020-06-18 19:54] VITALS: BP 145/82
[2020-06-18 23:12] VITALS: BP 137/89
[2020-06-18] MEDS: INSULIN GLARGINE 100 UNITS/ML 10 ML VIAL SQ SCH (23:28)
[2020-06-19] VITALS (30 sets, daily range): BP systolic 112–168; BP diastolic 52–96
[2020-06-19 04:48] LABS: HEMATOCRIT 46.3 % (42-54); MEAN CORPUSCULAR HEMOGLOBIN 27.7 pg (27.0-33.0); MEAN CORPUSCULAR HGB CONC 31.1 g/dL (32.0-36.0); MEAN CORPUSCULAR VOLUME 89.2 fL (79-99); RED BLOOD CELL COUNT(AUTO) 5.19 MIL/uL (4.50-6.20); RED CELL DISTRIBUTION WIDTH 13.5 % (11.0-15.5); WHITE BLOOD COUNT (AUTO) 8.1 K/uL (4.8-10.8)
[2020-06-19 05:09] LABS: CREATININE 2.1 mg/dL (0.5-1.5); POTASSIUM 5.1 mmol/L (3.5-5.1)
[2020-06-19] MEDS: HYDROMORPHONE HCL 0.5 MG/0.5 ML ML IVP PRN ×3 (05:18→18:35)
[2020-06-19] MEDS: INSULIN LISPRO 100 UNIT/ML 3ML SQ SCH ×7 (07:25→20:34)
[2020-06-19] MEDS: FAMOTIDINE/PF 20 MG/2 ML VIAL IV SCH (09:32)
[2020-06-19] MEDS: ZYVOX 600 MG TAB PO SCH ×2 (11:36→22:51)
--- NOTE | 2020-06-19 12:29 | NUR ---
assessment note PT A/AX 3 VS STABLE GOING FOR ORIF TO THE RIGHT
[2020-06-19] MEDS ORDERED: SODIUM CHLORIDE 0.9% 1000ML 1,000 ML IV ONE (12:42)
[2020-06-19] MEDS ORDERED: LIDOCAINE HCL-MPF 1% 5ML AMP IJ ONE (13:14)
[2020-06-19] MEDS ORDERED: MIDAZOLAM HCL 1 MG/ML 2ML VIAL ONE ×2 (13:14→13:58)
[2020-06-19] MEDS ORDERED: PROPOFOL 10 MG/ML 20ML VIAL IV ONE ×2 (13:14→15:52)
[2020-06-19] MEDS ORDERED: FENTANYL CITRATE PF 50 MCG/1 ML 2ML VIAL ONE (13:14)
[2020-06-19] MEDS ORDERED: ROCURONIUM 10MG/1ML SYR 10 MG/ML ML ONE (14:18)
[2020-06-19] MEDS ORDERED: PHENYLEPHRINE HCL 10 MG/ML 1ML VIAL IV ONE ×2 (14:21→14:26)
[2020-06-19] MEDS ORDERED: NEOSTIGMINE 5MG/5ML SYR IV ONE ×2 (14:21)
[2020-06-19] MEDS ORDERED: EPHEDRINE SULFATE 50 MG/ML AMPULE ONE (14:22)
[2020-06-19] MEDS ORDERED: VANCOMYCIN HCL 1 GM VIAL ONE (15:41)
[2020-06-19] MEDS ORDERED: CALCIUM CARBONATE 500 MG TABLET PO PRN (16:00)
[2020-06-19] MEDS ORDERED: FERROUS FUMARATE 324 MG TABLET PO PRN (16:00)
[2020-06-19] MEDS ORDERED: DIPHENHYDRAMINE HCL 25 MG CAPSULE PO PRN (16:00)
[2020-06-19] MEDS ORDERED: CEFAZOLIN SODIUM 1 GM VIAL ONE (16:19)
--- NOTE | 2020-06-19 16:33 | NUR ---
CM NOTE/PENDING DCP WAS GOING TO MEET WITH PATIENT TO ARRANGE DISCHARGE. PATIENT STILL IN PROCEDURE. CALLED NEXT OF KIN, PAULETTE WALTON, [phone], NO ANSWER. THIS CM TO FOLLOW UP
[2020-06-19] MEDS ORDERED: MEPERIDINE-PF 25 MG/ML SYG ONE ×2 (16:41→16:56)
--- NOTE | 2020-06-19 17:30 | NUR ---
RT ORIF PT BACK FROM OR, A/AX 3, T 97.9 ,B/P 153/66, 89HR, 99 SP02 2 LITERS NC, DRESSING IS DRY AND INTACT WITH BRACE TO LOWER LEG, WILL CONTINUE TO MONITOR. Addendum: 06/19/20 at 1744 by TEMI NANCE RN RN BS 175 IN OR REPORT
--- NOTE | 2020-06-19 17:45 | NUR ---
ASSESSMENT NOTE 15MIN X2 PT A/A X 3 C/O PAIN TO RT LOWER LEG, VS ARE STABLE PT SITTING UP IN BED EATING DINNER. DRESSING DRY AND INTACT WITH BRACE, LEG IS WARM WITH PEDAL PULSE PRESENT.
--- NOTE | 2020-06-19 18:00 | NUR ---
15MIN X3 PT CONTINUES TO EAT DINNER, PULSES TO FOOT ARE PRESENT, FOOT IS WARM WITH GOOD COLOR.
[2020-06-19] MEDS ORDERED: SODIUM CHLORIDE 0.9% 250 ML IV ONE (21:02)
[2020-06-19] MEDS: INSULIN GLARGINE 100 UNITS/ML 10 ML VIAL SQ SCH (21:05)
[2020-06-19] MEDS: CEFAZOLIN 3GM /D5W 100ML 100 ML IV SCH (22:05)
[2020-06-20] MEDS: HYDROMORPHONE HCL 0.5 MG/0.5 ML ML IVP PRN ×2 (02:21→08:31)
[2020-06-20 03:58] VITALS: BP 155/94
[2020-06-20 04:45] LABS: BASOPHILS % (AUTO) 0.5 % (0.0-5.0); EOSINOPHILS % (AUTO) 2.3 % (0.0-8.0); HEMATOCRIT 40.2 % (42-54); LYMPHOCYTES % (AUTO) 10.4 % (21.0-51.0); MEAN CORPUSCULAR HEMOGLOBIN 27.7 pg (27.0-33.0); MEAN CORPUSCULAR HGB CONC 31.1 g/dL (32.0-36.0); MEAN CORPUSCULAR VOLUME 88.9 fL (79-99); MONOCYTES % (AUTO) 9.6 % (3.0-13.0); NEUTROPHILS % (AUTO) 76.6 % (40.0-77.0); PLATELET COUNT (AUTO) 246 K/uL (130-400); RED BLOOD CELL COUNT(AUTO) 4.52 MIL/uL (4.50-6.20); RED CELL DISTRIBUTION WIDTH 13.6 % (11.0-15.5); WHITE BLOOD COUNT (AUTO) 10.3 K/uL (4.8-10.8)
[2020-06-20] MEDS: CEFAZOLIN 3GM /D5W 100ML 100 ML IV SCH (05:01)
[2020-06-20 05:30] LABS: CREATININE 2.4 mg/dL (0.5-1.5); POTASSIUM 4.7 mmol/L (3.5-5.1)
--- NOTE | 2020-06-20 06:25 | NUR ---
PERSISTENT PAIN Pt was given dilaudid 0.75 mg iv for pain at 0221, was ok after 1 hr then started moaning around 0500. Dr. Thomas called and was updated about the pain status and order received to give hydrocodone 5mg tab x 1 for pain. Pt s/p orif on the rle, quiana wrap dressing to the rt leg dry and intact, with a knee immobilizer in place.Pt more anxious, stated that he's hurting more. Takes off the cpap mask every now and then, placed backon 3l of O2 per nasal cannula.
[2020-06-20] MEDS ORDERED: HYDROCODONE/ACETAMINOPHEN 5/325 MG TAB ONE (06:28)
[2020-06-20] MEDS ORDERED: HYDROCODONE/ACETAMINOPHEN 5/325 MG TAB PO ONE (06:30)
[2020-06-20] MEDS: INSULIN LISPRO 100 UNIT/ML 3ML SQ SCH ×8 (07:30→21:00)
[2020-06-20 07:51] VITALS: BP 169/81
--- NOTE | 2020-06-20 08:00 | NUR ---
ASSESSMENT NOTE PT A/AX 3 CRYING THAT HE IS IN PAIN 10/10 TO RIGHT LOWER LEG. WILL CHECK MAR TO SEE IF PAIN MED IS DUE.
[2020-06-20] MEDS: POLYETHYLENE GLYCOL 3350 17 GM POWD.PACK PO SCH (08:29)
--- NOTE | 2020-06-20 08:31 | NUR ---
PAIN PT IS CRYING AND MOANING THAT HE IS IN PAIN 10/10 TO RIGHT LEG, DILAUDID0.75 ML GIVEN. WILL REASSESS
[2020-06-20] MEDS: FAMOTIDINE/PF 20 MG/2 ML VIAL IV SCH (09:00)
--- NOTE | 2020-06-20 10:30 | NUR ---
PAIN PT CRYING AND MOANING ASKING FOR ANOTHER DOSE OF DILAUDID, EXPLAINED ITS NOT TIME FOR THE NEXT DOSE YET. DR. GUAJARDO IS AWARE OF PATIENT PAIN LEVEL.
[2020-06-20 11:24] VITALS: BP 137/78
--- NOTE | 2020-06-20 12:00 | NUR ---
PAIN, YASMINE COSME HASSAN ARE AWARE OF PATIENT PAIN. NO NEW ORDERS AT THIS TIME
--- NOTE | 2020-06-20 12:35 | NUR ---
CM NOTE/DCP TRIED TO MEET WITH PATIENT IN ROOM BUT NURSE STATES HE IS DROWSY D/T DILAUDID IV PRN GIVEN. SPOUSE CALLED, NO ANSWER. THIS CM TO FOLLOW UP FOR DC PLANNING.
[2020-06-20] MEDS: PSYLLIUM SEED 1 EACH PACKET PO SCH (13:00)
[2020-06-20] MEDS ORDERED: HYDROCODONE/ACETAMINOPHEN 5/325 MG TAB PO PRN (13:00)
--- NOTE | 2020-06-20 13:42 | NUR ---
PAIN MGMT DR CHANGED PAIN MEDS, DILAUDID IS D/C AND NORCO 5/325 AND TYLENOL 650 ARE NOW THE NEW PAIN MEDS ORDERED. I JUST GAVE PATIENT NORCO 5/325 Q 6HRS.
--- NOTE | 2020-06-20 14:30 | NUR ---
PAIN PT TURNED ON LIGHT FOR PAIN MED ITS NOT TIME FOR NORCO 5/325. PT IS STILL IN PAIN NO NEW ORDERS
--- NOTE | 2020-06-20 14:31 | NUR ---
CM NOTE/DCP , PAULETTE, RETURNED CALL AND DISCHARGE PLANNING DONE, OPEN TO IRU. TRIED TO MEET PATIENT IN HIS ROOM BUT WAS ON PHONE WITH DISCUSSING DCP, WILL RESUME DCP AT LATER TIME.
--- NOTE | 2020-06-20 15:00 | NUR ---
ASSESSMENT NOTE PT IN BED WITH 02 OFF. PT REPEATEDLY TAKES OFF NC , I EXPLAIN TO PATIENT THE IMPORTANCE OF HIM KEEPING ON THE OXYGEN D/T THE PAIN MEDS THAT ARE GIVEN. Addendum: 06/20/20 at 1856 by TEMI NANCE RN RN PT RIGHT LEG IS WARM TO TOUCH, AND PEDAL PULSE IS PRESENT, DRESSING DRY AND INTACT.
--- NOTE | 2020-06-20 15:08 | NUR ---
DR. LOW PAIN DR. LOW HERE TO SEE PT D/T PAIN WILL ADJUST MEDS FOR PATIENT.NO NEW ORDERS AT THIS TIME.
[2020-06-20] MEDS ORDERED: HYDROMORPHONE HCL 2 MG/ML VIAL IVP PRN (15:15)
--- NOTE | 2020-06-20 15:22 | NUR ---
DR. DEVANTE LOW CHANGED PAIN MED TO DILAUDID 1ML, CALL IF ANY CHANGES WITH PAIN.
[2020-06-20 16:00] VITALS: BP 129/129
--- NOTE | 2020-06-20 17:33 | NUR ---
CM NOTE/[facility] MEET WITH PATIENT IN ROOM TO DISCUSS DISCHARGE PLANNING. [facility] SPOUSE CALLED, PAULETTE WALTON, TO NOTIFY OF DECISION. THIS CM TO FOLLOW UP FOR REFERRAL.
--- NOTE | 2020-06-20 18:42 | NUR ---
DR. LOW PER DR. LOW PLEASE CALL HIM ANYTIME FOR ANYTHING REGARDING PATIENT PAIN.
--- NOTE | 2020-06-20 18:56 | NUR ---
DRESSING DRESSING CHANGED CLEANED, ABD PADS, VASELINE GAUZE,WITH TASNEEM BANDAGE. SITE LOOKS CLEAN WITHOUT REDNESS
[2020-06-20 20:03] VITALS: BP 142/76
[2020-06-20] MEDS ORDERED: HYDROMORPHONE 1 MG/1 ML AMP ONE (21:20)
[2020-06-20] MEDS: INSULIN GLARGINE 100 UNITS/ML 10 ML VIAL SQ SCH (21:41)
[2020-06-20] MEDS: TERBINAFINE HCL 15 GM TUBE TP SCH (21:43)
[2020-06-20 23:39] VITALS: BP 150/85
[2020-06-21 04:40] VITALS: BP 149/89
[2020-06-21] MEDS: HYDROMORPHONE 1 MG/1 ML AMP IVP PRN ×3 (05:12→18:54)
[2020-06-21 05:15] LABS: BASOPHILS % (AUTO) 0.4 % (0.0-5.0); EOSINOPHILS % (AUTO) 2.9 % (0.0-8.0); HEMATOCRIT 39.3 % (42-54); MEAN CORPUSCULAR HEMOGLOBIN 28.3 pg (27.0-33.0); MEAN CORPUSCULAR HGB CONC 31.8 g/dL (32.0-36.0); MEAN CORPUSCULAR VOLUME 88.9 fL (79-99); MONOCYTES % (AUTO) 10.7 % (3.0-13.0); NEUTROPHILS % (AUTO) 76.6 % (40.0-77.0); PLATELET COUNT (AUTO) 258 K/uL (130-400); RED BLOOD CELL COUNT(AUTO) 4.42 MIL/uL (4.50-6.20); RED CELL DISTRIBUTION WIDTH 14.1 % (11.0-15.5)
[2020-06-21 05:33] LABS: CREATININE 2.3 mg/dL (0.5-1.5); MAGNESIUM 1.7 mg/dL (1.80-2.40); PHOSPHORUS 3.4 mg/dL (2.5-4.9); POTASSIUM 4.4 mmol/L (3.5-5.1)
--- NOTE | 2020-06-21 06:00 | NUR ---
PATIENT UPDATE PT HAD A MORE QUIET NIGHT. MEDICATED FOR PAIN TWICE, LAST TIME AT 0512. ABLE TO KEEP THE BIPAP 18/8, RATE OF 20 WITH 40% FIO2 UNTIL EARLY AM. DRESSING ON THE RT LEG DRY AND INTACT, KNEE IMMOBILIZER IN PLACE. ON 3L OF O2 PER NASAL CANNULA DURING WAKING HOURS.
[2020-06-21] MEDS: INSULIN LISPRO 100 UNIT/ML 3ML SQ SCH ×7 (06:15→21:00)
[2020-06-21 08:00] VITALS: BP 153/88
[2020-06-21] MEDS: TERBINAFINE HCL 15 GM TUBE TP SCH (09:58)
[2020-06-21] MEDS: POLYETHYLENE GLYCOL 3350 17 GM POWD.PACK PO SCH (09:58)
[2020-06-21] MEDS: FAMOTIDINE/PF 20 MG/2 ML VIAL IV SCH (09:58)
[2020-06-21 11:00] VITALS: BP 130/80
--- NOTE | 2020-06-21 11:52 | NUR ---
RDSCREEN - LOS X 14 Patient admitted with Sepsis, Acute renal failure. S/p fall, s/p R-ORIF. Pt with Osteoporosis, elevated serum calcium. Monitored labs: BUN 23, Cr 2.3, GFR 32, BG 182, Ca 10.5, Mg 1.70. Obesity Class III (BMI 57.4). Miralax, Humalog, Metamucil in place. LBM 06/20/20 Recommend Renal Non-dialysis Diet modifier Recommend vitamin D and Mg supplementation Recommend daily MVI with minerals RD to continue to monitor. Please notify as additional nutrition concerns arise. Thank you.
--- NOTE | 2020-06-21 12:00 | NUR ---
MANUEL NOTE/ISABELA MARVIN FROM [facility] MADE AWARE OF REFERRAL. EMAILED AND FAXED CLINICAL PACKET, CM TO FOLLOW UP FOR UPDATES.
[2020-06-21] MEDS: PSYLLIUM SEED 1 EACH PACKET PO SCH (12:04)
[2020-06-21] MEDS ORDERED: BISACODYL 5 MG TABLET.DR PO PRN (16:00)
[2020-06-21 16:52] VITALS: BP 161/97
[2020-06-21 19:55] VITALS: BP 158/85
[2020-06-21] MEDS: INSULIN GLARGINE 100 UNITS/ML 10 ML VIAL SQ SCH (22:27)
[2020-06-21 23:46] VITALS: BP 149/56
[2020-06-22] MEDS: HYDROMORPHONE 1 MG/1 ML AMP IVP PRN ×4 (02:36→20:11)
[2020-06-22 04:32] VITALS: BP 149/91
[2020-06-22 06:23] LABS: BASOPHILS % (AUTO) 0.3 % (0.0-5.0); EOSINOPHILS % (AUTO) 3.2 % (0.0-8.0); MEAN CORPUSCULAR HEMOGLOBIN 27.7 pg (27.0-33.0); MEAN CORPUSCULAR HGB CONC 30.5 g/dL (32.0-36.0); MEAN CORPUSCULAR VOLUME 90.9 fL (79-99); MONOCYTES % (AUTO) 13.2 % (3.0-13.0); NEUTROPHILS % (AUTO) 69.4 % (40.0-77.0); PLATELET COUNT (AUTO) 271 K/uL (130-400); RED BLOOD CELL COUNT(AUTO) 4.62 MIL/uL (4.50-6.20); RED CELL DISTRIBUTION WIDTH 14.1 % (11.0-15.5); WHITE BLOOD COUNT (AUTO) 8.7 K/uL (4.8-10.8)
[2020-06-22] MEDS: INSULIN LISPRO 100 UNIT/ML 3ML SQ SCH ×7 (06:40→21:00)
[2020-06-22 06:49] LABS: CREATININE 2.2 mg/dL (0.5-1.5); POTASSIUM 4.8 mmol/L (3.5-5.1)
[2020-06-22 08:00] VITALS: BP 158/93
[2020-06-22] MEDS: FAMOTIDINE/PF 20 MG/2 ML VIAL IV SCH (08:55)
[2020-06-22] MEDS: POLYETHYLENE GLYCOL 3350 17 GM POWD.PACK PO SCH (08:55)
[2020-06-22] MEDS: TERBINAFINE HCL 15 GM TUBE TP SCH ×2 (08:57→19:40)
[2020-06-22 11:14] VITALS: BP 166/88
[2020-06-22] MEDS: PSYLLIUM SEED 1 EACH PACKET PO SCH (12:17)
[2020-06-22 15:52] VITALS: BP 143/85
[2020-06-22] MEDS ORDERED: BISACODYL 10 MG SUPP.RECT RC PRN (16:00)
[2020-06-22 19:29] VITALS: BP 153/63
[2020-06-22] MEDS: INSULIN GLARGINE 100 UNITS/ML 10 ML VIAL SQ SCH (19:42)
[2020-06-22] MEDS ORDERED: HEPARIN SODIUM 5000UNIT/ML 1ML VIAL SQ SCH (20:00)
[2020-06-22] MEDS: DiphenhydrAMINE HCL 50 MG/ML VIAL IVP PRN (20:11)
[2020-06-22] MEDS: APIXABAN 2.5 MG TABLET PO SCH (21:47)
--- NOTE | 2020-06-22 23:09 | NUR ---
received report from am nurse, assumed care, introduced self as night nurse, head to toe assessment done, lung field clear, timed medication given, pain medication given see emar, pre and post pain assessment done, bedrails upx2, callbell in reached, 24 ccdone, will continue to monitor.
[2020-06-22 23:20] VITALS: BP 143/85
[2020-06-23] MEDS: HYDROMORPHONE 1 MG/1 ML AMP IVP PRN ×4 (02:31→23:09)
[2020-06-23] MEDS: DiphenhydrAMINE HCL 50 MG/ML VIAL IVP PRN ×3 (02:31→17:27)
[2020-06-23 04:44] VITALS: BP 147/84
[2020-06-23] MEDS: INSULIN LISPRO 100 UNIT/ML 3ML SQ SCH ×7 (06:14→20:02)
[2020-06-23 06:37] LABS: CREATININE 2.4 mg/dL (0.5-1.5); POTASSIUM 4.5 mmol/L (3.5-5.1)
[2020-06-23 08:00] VITALS: BP 147/78
[2020-06-23] MEDS: POLYETHYLENE GLYCOL 3350 17 GM POWD.PACK PO SCH (09:00)
[2020-06-23] MEDS: FAMOTIDINE/PF 20 MG/2 ML VIAL IV SCH (09:13)
[2020-06-23] MEDS: TERBINAFINE HCL 15 GM TUBE TP SCH ×2 (09:14→20:03)
[2020-06-23] MEDS: APIXABAN 2.5 MG TABLET PO SCH ×2 (10:49→20:01)
[2020-06-23 11:56] VITALS: BP 131/80
[2020-06-23] MEDS: PSYLLIUM SEED 1 EACH PACKET PO SCH (12:00)
[2020-06-23 16:00] VITALS: BP 142/95
[2020-06-23 19:47] VITALS: BP 132/80
[2020-06-23] MEDS: INSULIN GLARGINE 100 UNITS/ML 10 ML VIAL SQ SCH (20:02)
[2020-06-23 23:59] VITALS: BP 144/79
[2020-06-24] MEDS: HYDROMORPHONE 1 MG/1 ML AMP IVP PRN ×3 (00:31→13:23)
[2020-06-24 03:46] VITALS: BP 152/78
[2020-06-24] MEDS: INSULIN LISPRO 100 UNIT/ML 3ML SQ SCH ×7 (05:41→21:00)
[2020-06-24 05:59] LABS: CREATININE 2.5 mg/dL (0.5-1.5); POTASSIUM 4.4 mmol/L (3.5-5.1)
[2020-06-24 07:39] VITALS: BP 145/79
[2020-06-24] MEDS: APIXABAN 2.5 MG TABLET PO SCH ×2 (09:14→20:51)
[2020-06-24] MEDS: FAMOTIDINE/PF 20 MG/2 ML VIAL IV SCH (09:14)
[2020-06-24] MEDS: POLYETHYLENE GLYCOL 3350 17 GM POWD.PACK PO SCH (09:15)
--- NOTE | 2020-06-24 10:37 | NUR ---
CALLED FOR UPDATE ON PT. LEFT MESSAGE, NO ANSWER
[2020-06-24] MEDS: PSYLLIUM SEED 1 EACH PACKET PO SCH (11:10)
[2020-06-24 11:23] VITALS: BP 135/72
--- NOTE | 2020-06-24 13:31 | NUR ---
cm note [facility] and states they are still pending insurance approval. states no update needed at this time, he will inform cm if gets approval.
[2020-06-24] MEDS: HYDROCODONE/ACETAMINOPHEN 10/325 MG TAB PO PRN ×2 (15:19→20:52)
[2020-06-24 17:27] VITALS: BP 123/68
[2020-06-24 20:12] VITALS: BP 127/74
[2020-06-24] MEDS: INSULIN GLARGINE 100 UNITS/ML 10 ML VIAL SQ SCH (21:01)
[2020-06-24] MEDS: TERBINAFINE HCL 15 GM TUBE TP SCH (21:02)
--- NOTE | 2020-06-24 21:05 | NUR ---
MEDS SHIFT ASSESSMENT DONE, PLEASE REFER TO CHART. PT CLAIMS OF RT LEG PAINS. DUE MEDS ADMINISTERED, NORCO PO GIVEN FOR PAINS. KEPT RESTED AND COMFORTABLE IN BED. CALL LIGHT WITHIN REACH. WILL RE-ASSESS PT. Addendum: 06/25/20 at 0029 by GERMAN RAINES RN RN Amended: Links added.
--- NOTE | 2020-06-24 22:30 | NUR ---
RT LADY, IN AND PLACED PT ON BIPAP FOR THE NIGHT. WILL CONTINUE TO MONITOR. CALL LIGHT WITHIN REACH.
[2020-06-24 23:56] VITALS: BP 133/78
--- NOTE | 2020-06-25 02:15 | NUR ---
ROUNDS PT RESTING WELL, NO DISTRESS NOTED. KEPT UNDISTURBED FOR NOW. WILL MONITOR PT. CALL LIGHT WITHIN REACH.
[2020-06-25 03:49] VITALS: BP 148/75
[2020-06-25 05:18] LABS: BASOPHILS % (AUTO) 0.6 % (0.0-5.0); EOSINOPHILS % (AUTO) 5.4 % (0.0-8.0); HEMATOCRIT 38.5 % (42-54); LYMPHOCYTES % (AUTO) 23.3 % (21.0-51.0); MEAN CORPUSCULAR HEMOGLOBIN 27.8 pg (27.0-33.0); MEAN CORPUSCULAR HGB CONC 30.9 g/dL (32.0-36.0); MONOCYTES % (AUTO) 15.5 % (3.0-13.0); NEUTROPHILS % (AUTO) 54.9 % (40.0-77.0); PLATELET COUNT (AUTO) 329 K/uL (130-400); RED BLOOD CELL COUNT(AUTO) 4.28 MIL/uL (4.50-6.20); RED CELL DISTRIBUTION WIDTH 13.8 % (11.0-15.5); WHITE BLOOD COUNT (AUTO) 6.3 K/uL (4.8-10.8)
[2020-06-25 05:31] LABS: CREATININE 2.6 mg/dL (0.5-1.5); PHOSPHORUS 4.3 mg/dL (2.5-4.9); POTASSIUM 5.1 mmol/L (3.5-5.1)
[2020-06-25] MEDS: INSULIN LISPRO 100 UNIT/ML 3ML SQ SCH ×7 (05:50→19:56)
[2020-06-25] MEDS: HYDROCODONE/ACETAMINOPHEN 10/325 MG TAB PO PRN ×2 (05:51→10:28)
--- NOTE | 2020-06-25 05:51 | NUR ---
PAIN PT COMPLAINTS OF RT LEG PAINS. MEDICATED WITH NORCO PO. KEPT COMFORTABLE IN BED. WILL RE-ASSESS PT.
[2020-06-25 08:06] VITALS: BP 135/84
[2020-06-25] MEDS: POLYETHYLENE GLYCOL 3350 17 GM POWD.PACK PO SCH (09:00)
[2020-06-25] MEDS ORDERED: HYDROMORPHONE HCL 2 MG/ML VIAL IVP PRN (09:00)
[2020-06-25] MEDS: APIXABAN 2.5 MG TABLET PO SCH ×2 (10:25→19:56)
[2020-06-25] MEDS: FAMOTIDINE/PF 20 MG/2 ML VIAL IV SCH (10:25)
--- NOTE | 2020-06-25 11:39 | NUR ---
CM NOTE/[facility], AUTHORIZATION RECEIVED AND APPROVED, PENDING BED AVAILABILITY. CM TO FOLLOW UP. PATIENT IS STILL REQUIRING DILAUDID IV PRN FOR PAIN MANAGEMENT. [facility] [employer] MADE AWARE OF AUTHORIZATION RECEIVED AND PAIN MANAGEMENT TO BE DONE FOR APPROPRIATE DISCHARGE.
--- NOTE | 2020-06-25 11:43 | NUR ---
CM NOTE/[facility] FOR EMS REQUEST FOR EMS TRANSPORT FAXED TO [facility], CM TO FOLLOW UP.
[2020-06-25] MEDS: PSYLLIUM SEED 1 EACH PACKET PO SCH (12:00)
[2020-06-25 12:03] VITALS: BP 153/80
--- NOTE | 2020-06-25 16:14 | NUR ---
MANUEL QUIROS/[facility] AUTH RECEIVED PER VENICE AT [facility], AUTH RECEIVED. AYAZ EDMONDSONP MADE AWARE, PER APPLICATIONS ANALYST, POSSIBLE DC VIA EMS TOMORROW, WORKING ON PAIN MANAGEMENT TODAY. REPORT GIVEN TO HARJEET COBB, PRIMARY NURSE.
[2020-06-25 16:27] VITALS: BP 144/87
[2020-06-25 19:51] VITALS: BP 152/78
[2020-06-25] MEDS: TERBINAFINE HCL 15 GM TUBE TP SCH (19:56)
--- NOTE | 2020-06-25 19:56 | NUR ---
MEDS SHIFT ASSESSMENT DONE, PLEASE REFER TO CHART. DUE MEDS ADMINISTERED, TOLERATED WELL. RT IN AND ASSISTED PT WITH BIPAP SET UP. KEPT COMFORTABLE IN BED. CALL LIGHT WITHIN REACH. WILL MONITOR PT. Addendum: 06/26/20 at 0121 by GERMAN RAINES RN RN Amended: Links added.
[2020-06-25] MEDS: INSULIN GLARGINE 100 UNITS/ML 10 ML VIAL SQ SCH (19:58)
--- NOTE | 2020-06-25 22:00 | NUR ---
ROUNDS PT RESTING WELL, FAIRLY ASLEEP. NO DISTRESS NOTED. KEPT UNDISTURBED FOR NOW. WILL CONTINUE TO MONITOR.
[2020-06-25 23:07] VITALS: BP 159/82
--- NOTE | 2020-06-26 02:00 | NUR ---
ROUNDS PT RESTING WELL, NO DISTRESS NOTED. KEPT COMFORTABLE. WILL MONITOR PT.
[2020-06-26] MEDS: HYDROCODONE/ACETAMINOPHEN 10/325 MG TAB PO PRN ×2 (02:51→09:35)
[2020-06-26 03:32] VITALS: BP 144/82
--- NOTE | 2020-06-26 05:29 | NUR ---
ROUNDS PT RESTING WELL. NO DISTRESS NOTED. NO CONCERNS VERBALIZED. FOR MORE CARE.
[2020-06-26] MEDS: INSULIN LISPRO 100 UNIT/ML 3ML SQ SCH ×6 (05:45→16:07)
[2020-06-26 05:48] LABS: BASOPHILS % (AUTO) 0.8 % (0.0-5.0); EOSINOPHILS % (AUTO) 4.8 % (0.0-8.0); HEMATOCRIT 40.6 % (42-54); LYMPHOCYTES % (AUTO) 22.4 % (21.0-51.0); MEAN CORPUSCULAR HEMOGLOBIN 27.7 pg (27.0-33.0); MEAN CORPUSCULAR HGB CONC 31.3 g/dL (32.0-36.0); MEAN CORPUSCULAR VOLUME 88.6 fL (79-99); MONOCYTES % (AUTO) 10.6 % (3.0-13.0); NEUTROPHILS % (AUTO) 60.8 % (40.0-77.0); PLATELET COUNT (AUTO) 379 K/uL (130-400); RED BLOOD CELL COUNT(AUTO) 4.58 MIL/uL (4.50-6.20); RED CELL DISTRIBUTION WIDTH 13.6 % (11.0-15.5); WHITE BLOOD COUNT (AUTO) 5.2 K/uL (4.8-10.8)
[2020-06-26 06:03] LABS: CREATININE 2.2 mg/dL (0.5-1.5); POTASSIUM 4.5 mmol/L (3.5-5.1)
[2020-06-26 08:00] VITALS: BP 156/88
[2020-06-26] MEDS: APIXABAN 2.5 MG TABLET PO SCH (09:34)
[2020-06-26] MEDS: FAMOTIDINE/PF 20 MG/2 ML VIAL IV SCH (09:34)
[2020-06-26] MEDS: POLYETHYLENE GLYCOL 3350 17 GM POWD.PACK PO SCH (09:34)
[2020-06-26] MEDS: TERBINAFINE HCL 15 GM TUBE TP SCH (09:38)
[2020-06-26 11:00] VITALS: BP 160/65
--- NOTE | 2020-06-26 11:27 | NUR ---
CM NOTE/[facility] PATIENT HAS NOT RECEIVED DILAUDID IV, PER NURSE, PATIENT MANAGED WITH PILLS. DR. PARKER MADE AWARE, POSS DC TO [facility] VIA EMS. EMS FAXED, CONFIRMED RECEIVED VIA CONFIRMATION RECEIPT, MOT FILLED OUT AND PENDING RECOIL SPRING WINDER AND MD SIGNATURE, MED REC PRINTED AND FLAGGED IN CHART. NURSE, PAULETTE COBB, AWARE OF PENDING MOT, MED REC AND CHART COPY. DR. BRAXTON AWARE OF SAMEMANUEL TO FOLLOW UP IN ANY ISSUES.
[2020-06-26] MEDS: PSYLLIUM SEED 1 EACH PACKET PO SCH (12:00)
[2020-06-26] MEDS ORDERED: ERGOCALCIFEROL (VITAMIN D2) 50,000 UNIT CAPSULE PO SCH (13:00)
[2020-06-26 16:00] VITALS: BP 148/81
--- NOTE | 2020-06-26 16:56 | NUR ---
DISCHARGE INSTRUCTIONS PATIENT DISCHARGED TO [facility]. REPORT CALLED IN TO DEBORAH COBB. IV REMOVED. TELEPAK REMOVED.
== END 2020-06-26 17:13 | DRG 710 ==
LOC: EDH 02:59 → EDHIP 03:00 → DAHIP 06-08 17:38 → 3DH 06-10 10:28
PROVIDERS: ADMIT Internal Medicine; ATTEND Internal Medicine
PROC: 5A09357 Assistance with Respiratory Ventilation, Less than 24 Consecutive Hours, Continuous Positive Airway Pressure (ICD-10-PCS; 2020-06-08)
PROC: 5A09357 Assistance with Respiratory Ventilation, Less than 24 Consecutive Hours, Continuous Positive Airway Pressure (ICD-10-PCS; 2020-06-09)
PROC: 5A09357 Assistance with Respiratory Ventilation, Less than 24 Consecutive Hours, Continuous Positive Airway Pressure (ICD-10-PCS; 2020-06-11)
PROC: 5A09357 Assistance with Respiratory Ventilation, Less than 24 Consecutive Hours, Continuous Positive Airway Pressure (ICD-10-PCS; 2020-06-12)
PROC: 5A09357 Assistance with Respiratory Ventilation, Less than 24 Consecutive Hours, Continuous Positive Airway Pressure (ICD-10-PCS; 2020-06-14)
PROC: 5A09357 Assistance with Respiratory Ventilation, Less than 24 Consecutive Hours, Continuous Positive Airway Pressure (ICD-10-PCS; 2020-06-15)
PROC: 5A09357 Assistance with Respiratory Ventilation, Less than 24 Consecutive Hours, Continuous Positive Airway Pressure (ICD-10-PCS; 2020-06-19)
PROC: 0QSG04Z Reposition Right Tibia with Internal Fixation Device, Open Approach (ICD-10-PCS; principal; 2020-06-19 14:50)
DX: A41.9 Sepsis, unspecified organism (principal); N39.0 Urinary tract infection, site not specified; N17.9 Acute kidney failure, unspecified; E87.5 Hyperkalemia; G47.33 Obstructive sleep apnea (adult) (pediatric); Z68.44 Body mass index [BMI] 60.0-69.9, adult; E66.01 Morbid (severe) obesity due to excess calories; J96.21 Acute and chronic respiratory failure with hypoxia; J96.22 Acute and chronic respiratory failure with hypercapnia; G93.41 Metabolic encephalopathy; B96.89 Other specified bacterial agents as the cause of diseases classified elsewhere; E11.649 Type 2 diabetes mellitus with hypoglycemia without coma; E11.22 Type 2 diabetes mellitus with diabetic chronic kidney disease; E11.65 Type 2 diabetes mellitus with hyperglycemia; E87.2 Acidosis; I13.2 Hypertensive heart and chronic kidney disease with heart failure and with stage 5 chronic kidney disease, or end stage renal disease; N18.5 Chronic kidney disease, stage 5; R65.21 Severe sepsis with septic shock; S82.141A Displaced bicondylar fracture of right tibia, initial encounter for closed fracture; W01.0XXA Fall on same level from slipping, tripping and stumbling without subsequent striking against object, initial encounter; Z99.3 Dependence on wheelchair; E55.9 Vitamin D deficiency, unspecified; E78.5 Hyperlipidemia, unspecified; G89.4 Chronic pain syndrome; I25.10 Atherosclerotic heart disease of native coronary artery without angina pectoris; I69.351 Hemiplegia and hemiparesis following cerebral infarction affecting right dominant side; J44.9 Chronic obstructive pulmonary disease, unspecified; L03.90 Cellulitis, unspecified; M19.90 Unspecified osteoarthritis, unspecified site; M62.82 Rhabdomyolysis; Z16.24 Resistance to multiple antibiotics; Z74.01 Bed confinement status; Z79.4 Long term (current) use of insulin; Z83.3 Family history of diabetes mellitus; Z87.440 Personal history of urinary (tract) infections; Z87.891 Personal history of nicotine dependence; Z90.5 Acquired absence of kidney; Z91.19 Patient's noncompliance with other medical treatment and regimen; I50.33 Acute on chronic diastolic (congestive) heart failure; J18.9 Pneumonia, unspecified organism; J44.0 Chronic obstructive pulmonary disease with (acute) lower respiratory infection; N41.9 Inflammatory disease of prostate, unspecified; M85.80 Other specified disorders of bone density and structure, unspecified site; S82.009A Unspecified fracture of unspecified patella, initial encounter for closed fracture; Y93.89 Activity, other specified; Y92.89 Other specified places as the place of occurrence of the external cause; Y99.8 Other external cause status; Z20.828 Contact with and (suspected) exposure to other viral communicable diseases
CPT/HCPCS: 36415; 36600; 70450; 71045; 71250; 72125; 73551; 73560; 73562; 73620; 73700; 74176; 80048; 80053; 80076; 80305; 81001; 82010; 82140; 82306; 82330; 82550; 82803; 82948; 83036; 83605; 83735; 83874; 83880; 83970; 84100; 84145; 84484; 85025; 85027; 85610; 85730; 86900; 86901; 87040; 87077; 87088; 87186; 87426; 87804; 92610; 93005; 93306; 94660; 97039; 99291; G0378; G0481; J0610; J0690; J0696; J1170; J1200; J1644; J1815; J1940; J2020; J2060; J2175; J2250; J2370; J2543; J2704; J2710; J3010; J3370; J3490; J7030; J7050; J7070; U0003

== ENCOUNTER 2021-05-13 18:34 | Emergency (ER) | payer MEDICAID ==
[~2021-05-13] VITALS: Ht 175.3 cm; Wt 226.8 kg
[~2021-05-13 18:34] MED LIST changes: +ALBU1.252 IH; +AMLO-257 PO; -AMLO5TAB9 PO; -Calcium Acetate PO; +FLUO40CA49 PO; -FLUO40CA7 PO; -FLUT1DIS4 IH; -FOLI0.8T22 PO; -FOLI0.8T41 PO; +FURO40TA5 PO; -FURO40TA7 PO; -GEMF600T5 PO; -INSU100C14 SQ; -INSU100V12 SQ; -IPRA3AMP24 IH; -LINE600T11 PO; -METO25 PO; -MUPI22O TP; +PANT40TA55 PO; -PREG50 PO; +TIOT4MIS2 IH
[2021-05-13 18:35] VITALS: BP 124/77
[2021-05-13] MEDS ORDERED: KETOROLAC 60 MG VIAL (30MG/ML) ONE (19:28)
[2021-05-13] MEDS ORDERED: DIAZEPAM 5 MG TABLET ONE (19:28)
[2021-05-13] MEDS ORDERED: FENTANYL 75 MCG/HR PATCH TD ONE (19:29)
[2021-05-13] MEDS ORDERED: FENTANYL 75 MCG/HR PATCH TD SCH (19:30)
[2021-05-13] MEDS ORDERED: DIAZEPAM 5 MG TABLET PO ONE (19:30)
[2021-05-13] MEDS ORDERED: KETOROLAC 60 MG VIAL (30MG/ML) IM ONE (19:30)
[2021-05-13] MEDS ORDERED: NAPR-1180 PO (19:32)
[2021-05-13] MEDS ORDERED: CYCL10 PO (19:32)
== END 2021-05-14 00:26 | disposition home or self-care (01) ==
LOC: EDH 18:34
DX: M54.5 Low back pain (principal); M25.561 Pain in right knee; M25.562 Pain in left knee; Z79.82 Long term (current) use of aspirin; Z79.1 Long term (current) use of non-steroidal anti-inflammatories (NSAID); Z88.2 Allergy status to sulfonamides; Z79.899 Other long term (current) drug therapy
CPT/HCPCS: 96372; 99283; J1885